=== PATIENT | male | born 1965 | race Caucasian/White ===

== ENCOUNTER → 2016-10-02 | Outpatient (CLI) | payer BC ==
--- NOTE | 2016-10-02 11:38 | NM ---
EXAMINATION TYPE: NM stress cardiolite complete DATE OF EXAM: 10/02/2016 10:11 AM COMPARISON: NONE HISTORY: R07.89, R06.02, shortness of breath TECHNIQUE: After the intravenous administration of 10.77 mCi Tc 99m Sestamibi - Rest images obtained 45 minutes post injection. The patient exercised using a ARABELLA protocol and 1 minute prior to peak exercise was injected with 27.5 mCi Tc 99m Sestamibi - Stress images obtained 10 minutes post inject ion. FINDINGS: Targeted heart rate was achieved during performance of the study. Review of stress and rest SPECT jeff ges demonstrates decreased radio pharmaceutical uptake at stress images along the inferior wall the l eft ventricular myocardium as compared to rest images, some decreased uptake also noted in the apical region on stress and rest images. Gated analysis shows normal wall motion with an estimated left ngozi tricular ejection fraction of 53%. IMPRESSION: Stress-induced left ventricular myocardial ischemia along the inferior wall of the left ventricular m yocardium, extension into the apex. A Yellow message has been communicated to Marleen Loaiza via the [employer] system on 10/02/2016 11:35 AM, Message ID [id number].
--- NOTE | 2016-10-02 12:37 | EST ---
DATE OF SERVICE: 10/02/2016 AGE: 51Y SEX: M HT: 70" WT: 273 lbs. Protocol Johnathan: X Other: Cardiolite Stress Stage: 3 Dur. of Exercise: 7:30 *Heart Rate Blood Pressure *Rest: 76 Rest: 130/83 * *Max. Achieved: 152 Maximum BP: 175/68 85% PMHR: 143 100% PMHR: 168 *METS: 8.0 INDICATIONS: Shortness of breath. MEDICATIONS: - CLINICAL INFORMATION: Shortness of breath, patient quit smoking 17 years ago, smoked for about 15 years, 1 pack of cigarettes a day. History of asthma. Resting ECG shows sinus rhythm, rate of 76 beats per minute, DE interval of 0.16, QRS 0.08, normal ST-T waves, poor R-wave progression in anteroseptal leads, possibly related to his chronic obstructive lung disease. Utilizing a standard Johnathan protocol, a symptom-limited treadmill test was performed. Patient exercised for total of 7 minutes and 30 seconds, attained a peak heart rate of 152 beats per minute, which is approximately 90% predicted maximum heart rate without any chest pain or pressure or ST segment deviations indicative of ischemia. Patient did complain of shortness of breath. No flat ST segment depression suggestive of angina is noted. No cardiac arrhythmias are noted. Patient has received Cardiolite scan, report will be followed by the radiologist. IMPRESSION: 1. Baseline rhythm is sinus with normal DE interval, normal QRS, normal ST-T waves, poor R-wave progression in anteroseptal leads. 2. Negative exercise treadmill test at 90% predicted maximal heart rate. 3. Nuclear scintigrams to follow from Radiology Department. 4. Patient has slightly below average level of cardiopulmonary fitness as indicated by O2 max and METs. 5. Patient attained peak metabolic activity equivalent to 8 to 9 METs.
--- NOTE | 2016-10-02 13:01 | XR ---
EXAMINATION TYPE: XR chest 2V DATE OF EXAM: 10/02/2016 10:13 AM COMPARISON: NONE HISTORY: Shortness of breath TECHNIQUE: Frontal and lateral views of the chest are obtained. FINDINGS: There is no focal air space opacity, pleural effusion, or pneumothorax seen. The cardiac silhouette size is within normal limits. The osseous structures are intact. IMPRESSION: No acute cardiopulmonary process.
== END | disposition home or self-care (01) ==
LOC: RADNMMAIN 07:56
PROVIDERS: ATTEND Nurse Practitioner Family
DX: I25.9 Chronic ischemic heart disease, unspecified (principal); R07.89 Other chest pain; R06.02 Shortness of breath
CPT/HCPCS: 93017; 71020; 78452; A9500

== ENCOUNTER → 2016-10-03 | Outpatient (CLI) | payer BC ==
[2016-10-03 09:20] LABS: CH 30.8; CHCM 33.3; HCT 46.1 % (39.0-53.0); HDW 2.48; HGB 14.5 gm/dL (13.0-17.5); MCH 29.3 pg (25.0-35.0); MCHC 31.6 g/dL (31.0-37.0); MCV 92.9 fL (80.0-100.0); Mean Platelet Volume 6.9; RBC 4.96 m/uL (4.30-5.90); RDW 12.8 % (11.5-15.5); WBC 8.4 k/uL (3.8-10.6)
[2016-10-03 10:11] LABS: ALT 73 U/L (21-72); AST 25 U/L (17-59); Anion Gap 13 mmol/L; Blood Urea Nitrogen 15 mg/dL (9-20); Carbon Dioxide 29 mmol/L (22-30); Chloride 103 mmol/L (98-107); Cholesterol 281 mg/dL (<200); HDL Cholesterol 50 mg/dL (40-60); Non-African American GFR(MDRD) >60 (>60 ml/min/1.73 sqM); Potassium 4.7 mmol/L (3.5-5.1); Sodium 145 mmol/L (137-145); Triglycerides 118 mg/dL (<150)
== END | disposition home or self-care (01) ==
LOC: LABWHC1 08:47
PROVIDERS: ATTEND Internal Medicine Cardiovascular Disease
DX: E78.2 Mixed hyperlipidemia (principal)
CPT/HCPCS: 36415; 80051; 80061; 82565; 84450; 84460; 84520; 85027

== ENCOUNTER → 2016-10-06 | Day surgery (SDC) | payer BC ==
[~2016-10-06] MED LIST: ALPRAZolam 0.25 MG TAB PO PRN; ALPRAZolam 0.5 MG TAB PO PRN; ASPIRIN 325 MG TAB PO STA; ATORVASTATIN 80 MG TAB PO STA; IOHEXOL 350 MG/ML 100 ML BOTTLE INJ ONE; LIDOCAINE 2% INJ 20 MG/ML (20 ML MDV) ONE; LIDOCAINE 2% INJ 20 MG/ML SQ ONE; MIDAZOLAM 2 MG/2 ML VIAL ONE; NITROGLYCERIN SL TABS 0.4 MG TAB SUBLINGUAL PRN; SODIUM CHLORIDE 0.9% 1,000 ML in EMPTY BAG 1 BAG IV ONE; diphenhydrAMINE 50 MG/ML 1 ML VIAL IVP ONE; diphenhydrAMINE 50 MG/ML 1 ML VIAL ONE; fentaNYL (PF) 50 MCG/ML 2 ML AMP IV ONE; fentaNYL (PF) 50 MCG/ML 2 ML AMP ONE
[2016-10-06 08:21] VITALS: RESP 18
[2016-10-06] MEDS: MIDAZOLAM 2 MG/2 ML VIAL IVP ONE ×3 (10:21→10:28)
--- NOTE | 2016-10-06 10:51 | P.OP ---
Date of Procedure: 10/06/16 Preoperative Diagnosis: Shortness of breath with abnormal stress test suggestive of unstable angina Postoperative Diagnosis: Normal coronary arteries Procedure(s) Performed: Left heart catheterization Operative Findings: Referring Physician: Hoda Indication: Shortness of breath with abnormal stress test suggestive of unstable angina Procedure Note: After obtaining informed consent left heart catheterization and coronary angiogram were performed via the right femoral artery using standard Debora catheters. Patient tolerated the procedure well without any obvious immediate complications. A femoral angiogram was obtained and Angio-Seal was deployed for hemostasis. Findings: Hemodynamics: Left ventricular end-diastolic pressure is 2014 mm Left Ventriculogram: Not performed Angiographic Data:] #1 Left Main Coronary Artery: Normal size vessel and is free of stenosis #2 Left Anterior Descending Coronary Artery: Normal vessel and diagonal branches are free of stenosis as is the LAD #3 Circumflex Coronary Artery: Large dominant vessel and is free of stenosis #4 Right Coronary Artery: Small nondominant vessel and is free of stenosis Conclusions: #1: Normal coronary arteries #2: Normal left ventricular end-diastolic pressure Plan: Shortness of breath is probably noncardiac in origin and the stress test is a false positive stress test
[2016-10-06 16:48] VITALS: TEMP 98
[2016-10-06 16:49] VITALS: BP 110/61; PULSE 70
== END ==
LOC: CATHCVL 07:53
PROVIDERS: ATTEND Internal Medicine Cardiovascular Disease
DX: R06.02 Shortness of breath (principal); R94.39 Abnormal result of other cardiovascular function study; I20.0 Unstable angina; E78.2 Mixed hyperlipidemia; Z79.82 Long term (current) use of aspirin; Z79.899 Other long term (current) drug therapy; Z82.49 Family history of ischemic heart disease and other diseases of the circulatory system; Z87.891 Personal history of nicotine dependence
CPT/HCPCS: 93458; C1760; C1894; C1769; J2001; J2250; J1200; Q9967; J3010

== ENCOUNTER → 2016-12-23 | Outpatient (CLI) | payer BC ==
[2016-12-23 13:59] VITALS: BP 143/82; PULSE 86; RESP 18; TEMP 97.5; BMI 41.5
--- NOTE | 2016-12-23 14:42 | P.HPBAR ---
Bariatric H&P - History & Physicial H&P Date: 12/23/16 History & Physicial: Visit/CC: 1st visit Patient initial contact: July 2016 Initial weight: 125.01 kg Initial weight in pounds: 275.60 Height: 5 ft 8.25 in Initial BMI: 41.5 Last weight: Current weight: 125.01 kg Current weight in pounds: 275.60 Current BMI: 41.5 Colby body weight (based on NIH guidelines): 70.534 kg Excess body weight loss: 0.0% The patient is a 51 year-old M who presents for Bariatric Assessment. Patient went to a bariatric seminar July. He is seen today for the first time to discuss bariatric surgery. He has had trouble with his weight for the majority of his life. He has however recently gained weight over the last 5 years approximately 40 pounds. His highest weight was 283. He is currently 275. He has tried a variety of different weight loss methods without success. His weight primarily affects him as it pertains to his arthritis and joint pain as well as his asthma. He is known to our service from a previous gallbladder 8- 10 years ago. The patient suffers from asthma rheumatoid arthritis osteoarthritis and GERD symptoms. He does denies dysphagia or DVT. He has not ever been on home oxygen. He may have had a hiatal hernia on prior upper endoscopy. He had a recent cardiac cath that was normal. He has not had a sleep apnea test study done. He is an ex smoker. He has been seen by Dr. Soto from cardiology and Dr. Armstrong from pulmonary. Review of Systems The patient denies any acute changes in his vision or hearing, no dysphagia or odynophagia, no chest pain, no dysuria or hematuria, no headache, no runny nose , no rectal bleeding or melena, no unexplained weight loss Past Medical History Past Medical History: Asthma, Coronary Artery Disease (CAD), Chest Pain / Angina , GERD/Reflux, Osteoarthritis (OA), Prostate Disorder Additional Past Medical History / Comment(s): CURRENT: HAD SOME CHEST PAIN, SOB , WENT TO DR. JUAREZ, STRESS & ECHO DONE. HAD INFECTION OF LEFT HIP POST OP WOUND (PICC LINE/ANTIBIOTICS) APPROXIMATELY 7 YRS AGO (2008-). History of Any Multi-Drug Resistant Organisms: None Reported Past Surgical History: Cholecystectomy, Orthopedic Surgery Additional Past Surgical History / Comment(s): TOTAL LEFT HIP REPLACMENT Past Anesthesia/Blood Transfusion Reactions: No Reported Reaction Past Psychological History: Anxiety Smoking Status: Former smoker Past Alcohol Use History: None Reported Additional Past Alcohol Use History / Comment(s): QUIT SMOKING 07/12/1999, FOR 15 YRS, 1.5 PPD. Past Drug Use History: None Reported - Past Family History Mother Family Medical History: No Reported History Surgical - Exam Vital Signs Temp Pulse Resp BP 97.5 F L 86 18 143/82 12/23/16 13:48 12/23/16 13:48 12/23/16 13:48 12/23/16 13:48 Physical exam: General: Well-developed, well-nourished HEENT: Normocephalic, sclerae nonicteric Abdomen: Nontender, nondistended Extremities: No edema Neuro: Alert and oriented Bariatric Assessment & Plan (1) Morbid obesity Narrative/Plan: Patient I discussed the options. We will move toward sleeve gastrectomy. The patient requires 6 months supervised weight loss program. Will plan EGD likely in February of this year. Patient will require stopping his meloxicam postoperatively. Associated risks of the sleeve gastrectomy were discussed in detail with the patient today. He understands and wishes to proceed. Status: Acute Bariatric Checklist Checklist: Plan: Checklist: EGD: 1. Hiatal hernia: 2. H. Pylori: HgbA1c: Vitamin D: Smoking: Former smoker Primary care physician referral: Tj Rice Psychiatry clearance: Cardiology clearance: Sleep study: Diet journal: VTE risk score: VTE risk level: Rehab needs at discharge:
== END | disposition home or self-care (01) ==
LOC: BARWHC3 13:38
PROVIDERS: ATTEND Surgery
DX: Z01.818 Encounter for other preprocedural examination (principal); E66.01 Morbid (severe) obesity due to excess calories; Z68.41 Body mass index [BMI] 40.0-44.9, adult; Z87.891 Personal history of nicotine dependence
CPT/HCPCS: 99201

== ENCOUNTER 2017-03-06 10:22 | Day surgery (SDC) | payer BC ==
[2017-03-04 09:43] VITALS: BMI 40.1
[~2017-03-06 10:22] MED LIST changes: -ALPRAZolam 0.25 MG TAB PO PRN; -ALPRAZolam 0.5 MG TAB PO PRN; -ASPIRIN 325 MG TAB PO STA; -ATORVASTATIN 80 MG TAB PO STA; -IOHEXOL 350 MG/ML 100 ML BOTTLE INJ ONE; +LACTATED RINGERS 1,000 ML IV SCH; +LIDOCAINE 1% 20 ML VIAL (10MG/ML) FOR IV START INTRADERMA PRN; -LIDOCAINE 2% INJ 20 MG/ML (20 ML MDV) ONE; -LIDOCAINE 2% INJ 20 MG/ML SQ ONE; -MIDAZOLAM 2 MG/2 ML VIAL ONE; -NITROGLYCERIN SL TABS 0.4 MG TAB SUBLINGUAL PRN; -SODIUM CHLORIDE 0.9% 1,000 ML in EMPTY BAG 1 BAG IV ONE; -diphenhydrAMINE 50 MG/ML 1 ML VIAL IVP ONE; -diphenhydrAMINE 50 MG/ML 1 ML VIAL ONE; -fentaNYL (PF) 50 MCG/ML 2 ML AMP IV ONE; -fentaNYL (PF) 50 MCG/ML 2 ML AMP ONE
[2017-03-06 10:55] VITALS: TEMP 97.3
[2017-03-06] MEDS ORDERED: fentaNYL (PF) 50 MCG/ML 2 ML AMP ONE (11:00)
[2017-03-06] MEDS ORDERED: PROPOFOL 10 MG/ML 20 ML VIAL IV ONE (11:00)
[2017-03-06] MEDS ORDERED: MIDAZOLAM 2 MG/2 ML VIAL ONE (11:00)
[2017-03-06] MEDS ORDERED: GLYCOPYRROLATE 0.2 MG/ML 2 ML VIAL ONE (11:00)
[2017-03-06] MEDS ORDERED: LIDOCAINE 1% INJ 10MG/ML (20 ML MDV) ONE (11:00)
--- NOTE | 2017-03-06 11:05 | P.GSHP ---
History of Present Illness H&P Date: 03/06/17 Chief Complaint: gerd Patient here today for upper endoscopy. He complains of intermittent reflux. He is being set up for eventual bariatric surgery in the near future. No dysphagia. Past Medical History Past Medical History: Asthma, Chest Pain / Angina, GERD/Reflux, Osteoarthritis ( OA), Prostate Disorder Additional Past Medical History / Comment(s): BPH. HAD INFECTION OF LEFT HIP POST OP WOUND (PICC LINE/ANTIBIOTICS) APPROXIMATELY 7 YRS AGO (2008-). History of Any Multi-Drug Resistant Organisms: None Reported Past Surgical History: Cholecystectomy, Heart Catheterization, Orthopedic Surgery Additional Past Surgical History / Comment(s): TOTAL LEFT HIP REPLACMENT. EGD, COLONOSCOPY. C. CATH 10/06/16, NL. Past Anesthesia/Blood Transfusion Reactions: Family History of Problems w/ Anesthesia Additional Past Anesthesia/Blood Transfusion Reaction / Comment(s): FATHER HAD PROB X1. Past Psychological History: Anxiety Additional Psychological History / Comment(s): "HX MINIMINAL" Smoking Status: Former smoker Past Alcohol Use History: None Reported Additional Past Alcohol Use History / Comment(s): QUIT SMOKING 07/12/1999, FOR 15 YRS, 1.5 PPD. Past Drug Use History: None Reported - Past Family History Mother Family Medical History: No Reported History Medications and Allergies Home Medications Medication Instructions Recorded Confirmed Type Albuterol Sulfate [Albuterol 1 dose INHALATION QID PRN 10/03/16 03/06/17 History Sulfate] Aspirin [Adult Low Dose Aspirin EC] 81 mg PO QAM 10/03/16 03/06/17 History Allergies Allergy/AdvReac Type Severity Reaction Status Date / Time No Known Allergies Allergy Unverified 03/06/17 10:44 Surgical - Exam Vital Signs Temp Pulse Resp BP Pulse Ox 97.3 F L 75 16 138/75 98 03/06/17 10:54 03/06/17 10:54 03/06/17 10:54 03/06/17 10:54 03/06/17 10:54 Physical exam: General: Well-developed, well-nourished HEENT: Normocephalic, sclerae nonicteric Abdomen: Nontender, nondistended Extremities: No edema Neuro: Alert and oriented Assessment and Plan (1) GERD (gastroesophageal reflux disease) Narrative/Plan: Will proceed with upper endoscopy at this time. Status: Acute
--- NOTE | 2017-03-06 11:13 | P.PCN ---
Date of Procedure: 03/06/17 Preoperative Diagnosis: Postoperative Diagnosis: Procedure(s) Performed: PREOPERATIVE DIAGNOSIS: Left inguinal hernia POSTOPERATIVE DIAGNOSIS: Same PROCEDURE: Repair left inguinal hernia with Prolene hernia system SURGEON: Shahid EBL: Minimal ANESTHESIA: General COMPLICATIONS: None OPERATIVE PROCEDURE: The patient is brought and placed on the operating table in the supine position. The patient was placed under general anesthesia at that time. The patient's previous incision was re-incised using a scalpel. The subcutaneous tissues were dissected using electro cautery. The external oblique was incised with a scalpel. This was lengthened using a Metzenbaum scissors. The spermatic cord structures were encircled with a Michael drain and dissected carefully. The patient had a moderate to large direct hernia defect. There was no identifiable indirect hernia sac. A portion of the attenuated transversalis fascia was excised and labeled hernia sac. The preperitoneal space was carefully dissected. A large Prolene hernia system was chosen. The inner circular portion of the mesh was placed within the pre- peroneal space and flattened out appropriately. The outer oval portion of mesh was slit and wrapped around the spermatic cord and sutured back to itself. The mesh was then sutured to the pubic tubercle, the folding edge of the inguinal ligament, and the conjoined tendon. The external oblique was then reapproximated using a running 2-0 Vicryl suture. The subcutaneous tissues were reapproximated using interrupted 3-0 Vicryl sutures and the skin using a running 4-0 Monocryl stitch. Steri-Strips and sterile dressings then applied. At the end of the procedure the sponge needle and counts were all correct. DISPOSITION: Stable to recovery room Implants: Indications for Procedure: Operative Findings: Description of Procedure:
--- NOTE | 2017-03-06 11:15 | P.PCN ---
Date of Procedure: 03/06/17 Preoperative Diagnosis: Postoperative Diagnosis: Procedure(s) Performed: Preoperative Dx: GERD, presurgical Postoperative Dx: Mild gastritis Procedure: EGD with Bx Anesthesia: Sedation Endoscopist: Dr. Key Specimens: Antrum Endoscopic Procedure: The patient was on the endoscopy table in the left decubitus position. The Olympus gastroscope was inserted into the oropharynx and passed under direct visualization to the region of the third portion of the duodenum. From that point the scope was slowly withdrawn inspecting all surfaces carefully. There were no neoplastic inflammatory or polypoid lesions throughout the duodenum. The pylorus was widely patent. The stomach was carefully inspected. There mild gastritis present. A biopsy of the antrum took place to rule out H. pylori. Retroflexion revealed a normal hiatus. The esophagus was then carefully examined. There were no neoplastic inflammatory or polypoid lesions throughout the visualized esophagus. The patient was then taken to the recovery room in stable condition per anesthesia guidelines. Recommendations: Await biopsy results. Implants: Indications for Procedure: Operative Findings: Description of Procedure:
[2017-03-06 11:22] VITALS: RESP 18
[2017-03-06 11:41] VITALS: BP 122/81; PULSE 73
== END 2017-03-06 12:06 | disposition home or self-care (01) ==
LOC: ORWHC2ENDO 10:22
PROVIDERS: ATTEND Surgery
DX: K29.50 Unspecified chronic gastritis without bleeding (principal); K21.9 Gastro-esophageal reflux disease without esophagitis; J45.909 Unspecified asthma, uncomplicated; M19.90 Unspecified osteoarthritis, unspecified site; N40.0 Benign prostatic hyperplasia without lower urinary tract symptoms; F41.9 Anxiety disorder, unspecified; Z79.82 Long term (current) use of aspirin; Z87.891 Personal history of nicotine dependence
CPT/HCPCS: 88305; 88342; 43239; J2250; J2001; J3010; J2704

== ENCOUNTER → 2017-07-08 | Outpatient (CLI) | payer BC ==
--- NOTE | 2017-07-08 15:46 | XR ---
Lumbar spine HISTORY: Chronic low back pain 3 views of the lumbar spine No comparisons There is a mild levoscoliosis centered at L3. Multilevel spondylosis is present. Loss of disc height present L3-4, L4-5 with associated vacuum phenomenon, loss of disc height also present L2-3, L5-S1. S clerosis present in the posterior elements of the lumbar spine. Lumbar vertebral bodies show preserve d height, alignment, and bone mineralization. Postop change noted status post hip arthroplasty. Vascu lar calcifications noted. IMPRESSION: Degenerative disc disease and facet arthropathy.
== END | disposition home or self-care (01) ==
LOC: RADXRMAIN 12:19
PROVIDERS: ATTEND Family Medicine
DX: M51.16 Intervertebral disc disorders with radiculopathy, lumbar region (principal); M46.96 Unspecified inflammatory spondylopathy, lumbar region
CPT/HCPCS: 72100

== ENCOUNTER → 2017-07-15 | Outpatient (CLI) | payer BC | END | disposition home or self-care (01) | LOC: RADMRIMAIN 18:28 | PROVIDERS: ATTEND Family Medicine | DX: Z53.9 Procedure and treatment not carried out, unspecified reason (principal) ==

== ENCOUNTER → 2017-10-06 | Outpatient (CLI) | payer BC ==
[2017-10-06 15:20] VITALS: BP 129/72; PULSE 78; RESP 20; TEMP 97.8; BMI 42.3
--- NOTE | 2017-10-06 17:13 | P.BASOAP ---
Subjective Progress Note Date: 10/06/17 Principal diagnosis: Morbid obesity Patient returns after completing 6 months of his supervised weight loss. Upper endoscopy performed in February showed no evidence of gastric ulcer, hiatal hernia, or H. pylori. He has completed his psychiatric evaluation. He would like to have surgery scheduled. Objective - Vital Signs Vital signs: Vital Signs Temp 97.8 F 10/06/17 15:17 Pulse 78 10/06/17 15:17 Resp 20 10/06/17 15:17 BP 129/72 10/06/17 15:17 Pulse Ox Intake & Output 10/05/17 10/06/17 10/06/17 18:59 06:59 18:59 Weight 127.278 kg - Exam Abdomen: Soft, nontender, nondistended Assessment/Plan (1) Morbid obesity Narrative/Plan: We'll proceed with scheduling of his upcoming sleeve gastrectomy. We'll clarify whether a seventh month of supervised weight loss is required. The risk profile form was reviewed in detail with the patient and all questions were appropriately answered. Plan: Date: 10/06/17 Initial Weight: 125.01 kg Initial BMI: 41.5 Current Weight: 127.278 kg Current BMI: 42.3 Type of Surgery: Vertical Sleeve Gastrectomy Total Volume in Band: Previous Volume: Volume Removed: Volume Added: Band Size:
== END | disposition home or self-care (01) ==
LOC: BARWHC3 14:40
PROVIDERS: ATTEND Surgery
DX: E66.01 Morbid (severe) obesity due to excess calories (principal); Z68.41 Body mass index [BMI] 40.0-44.9, adult
CPT/HCPCS: 99211

== ENCOUNTER → 2017-11-25 | Outpatient (CLI) | payer BC ==
[2017-11-25 12:54] LABS: Basophils # (A) 0.1 k/uL (0-0.2); Basophils % (A) 1 %; Eosinophils # (A) 0.2 k/uL (0-0.7); Eosinophils % (A) 2 %; HCT 43.8 % (39.0-53.0); HGB 14.4 gm/dL (13.0-17.5); Lymphocytes # (A) 2.1 k/uL (1.0-4.8); Lymphocytes % (A) 24 %; MCH 29.5 pg (25.0-35.0); MCV 89.6 fL (80.0-100.0); Mean Platelet Volume 6.4; Monocytes # (A) 0.6 k/uL (0-1.0); Monocytes % (A) 7 %; Neutrophils # (A) 5.7 k/uL (1.3-7.7); Neutrophils % (A) 65 %; Platelet Count 353 k/uL (150-450); RBC 4.89 m/uL (4.30-5.90); RDW 12.5 % (11.5-15.5); WBC 8.8 k/uL (3.8-10.6)
[2017-11-25 13:13] LABS: ALT 42 U/L (21-72); AST 21 U/L (17-59); Albumin 4.2 g/dL (3.5-5.0); Alkaline Phosphatase 82 U/L (38-126); Anion Gap 10 mmol/L; Blood Urea Nitrogen 16 mg/dL (9-20); Calcium 9.5 mg/dL (8.4-10.2); Carbon Dioxide 30 mmol/L (22-30); Chloride 102 mmol/L (98-107); Glucose 76 mg/dL (74-99); Potassium 4.4 mmol/L (3.5-5.1); Sodium 142 mmol/L (137-145); Total Bilirubin 0.3 mg/dL (0.2-1.3); Total Protein 7.1 g/dL (6.3-8.2)
== END | disposition home or self-care (01) ==
LOC: LABWHC1 12:15
PROVIDERS: ATTEND Surgery
DX: Z01.818 Encounter for other preprocedural examination (principal)
CPT/HCPCS: 36415; 80053; 85025; 93005

== ENCOUNTER 2017-12-13 16:16 | Inpatient (IN) | payer BC ==
[2017-12-13] MEDS ORDERED: SODIUM CHLORIDE 0.9% 1,000 ML IV STA (17:31)
--- NOTE | 2017-12-13 17:49 | ED ---
General Adult HPI - General Source: patient, RN notes reviewed Mode of arrival: ambulatory Limitations: no limitations <Anthony Adams - Last Filed: 12/13/17 19:59> <Alexander Duvall - Last Filed: 12/13/17 20:05> - General Chief complaint: Wound/Laceration Stated complaint: Hip Infection Time Seen by Provider: 12/13/17 17:13 - History of Present Illness Initial comments: Patient is 52-year-old male presenting today to the emergency room with a chief complaint of cellulitis to left hip area. He does admit that he had a hip replacement performed 4 years ago. States that his had 3 separate occasions a cellulitis to the left hip area. Patient admits that he began feeling some pain yesterday. He states some generalized body aches. Patient admits that he saw some redness and swelling locally to the left hip area. He states his symptoms are consistent with either states had in the past. Does admit that he' s had be admitted for IV antibiotics. States he sustained Dr. Henson in the past. Patient denies any recent fever, chills, shortness of breath, chest pain, back pain, abdominal pain, nausea or vomiting, numbness or tingling, headaches or visual changes, or any other complaints. (Anthony Adams) - Related Data Home Medications Medication Instructions Recorded Confirmed Tamsulosin HCl [Flomax] 0.4 mg PO DAILY 09/14/17 12/13/17 Acetaminophen Tab [Tylenol Tab] 500 mg PO Q6H PRN 12/10/17 12/13/17 Allergies Allergy/AdvReac Type Severity Reaction Status Date / Time No Known Allergies Allergy Verified 12/13/17 17:19 Review of Systems ROS Other: All systems not noted in ROS Statement are negative. <Anthony Adams - Last Filed: 12/13/17 19:59> ROS Other: All systems not noted in ROS Statement are negative. <Alexander Duvall - Last Filed: 12/13/17 20:05> ROS Statement: Those systems with pertinent positive or pertinent negative responses have been documented in the HPI. Past Medical History Past Medical History: Asthma, Chest Pain / Angina, GERD/Reflux, Osteoarthritis ( OA), Prostate Disorder Additional Past Medical History / Comment(s): BPH. HAD INFECTION OF LEFT HIP POST OP WOUND (PICC LINE/ANTIBIOTICS) APPROXIMATELY 7 YRS AGO (2008-). History of Any Multi-Drug Resistant Organisms: None Reported Past Surgical History: Cholecystectomy, Heart Catheterization, Orthopedic Surgery Additional Past Surgical History / Comment(s): TOTAL LEFT HIP REPLACMENT. EGD, COLONOSCOPY. C. CATH 10/06/16, NL. Past Anesthesia/Blood Transfusion Reactions: Family History of Problems w/ Anesthesia Additional Past Anesthesia/Blood Transfusion Reaction / Comment(s): FATHER HAD PROB X1. Past Psychological History: Anxiety Smoking Status: Former smoker Past Alcohol Use History: None Reported Past Drug Use History: None Reported - Past Family History Mother Family Medical History: No Reported History <Anthony Adams - Last Filed: 12/13/17 19:59> General Exam Limitations: no limitations <Anthony Adams - Last Filed: 12/13/17 19:59> <Alexander Duvall - Last Filed: 12/13/17 20:05> - General Exam Comments Initial Comments: General: The patient is awake and alert, in no distress, and does not appear acutely ill. Eye: Pupils are equal, round and reactive to light, extra-ocular movements are intact. No nystagmus. There is normal conjunctiva bilaterally. No signs of icterus. Ears, nose, mouth and throat: There are moist mucous membranes and no oral lesions. Neck: The neck is supple, there is no tenderness or JVD. Cardiovascular: There is a regular rate and rhythm. No murmur, rub or gallop is appreciated. Respiratory: Lungs are clear to auscultation, respirations are non-labored, breath sounds are equal. No wheezes, stridor, rales, or rhonchi. Musculoskeletal: Normal ROM, no tenderness. Strength 5/5. Sensation intact. Pulses equal bilaterally 2+. Neurological: A&O x 3. CN II-XII intact, There are no obvious motor or sensory deficits. Coordination appears grossly intact. Speech is normal. Skin: Patient does have area of redness swelling locally to the posterior aspect of the left hip towards the buttocks. Measures approximately 7 cm x 3 cm. Area is red raised. Mild warmth on palpation. Psychiatric: Cooperative, appropriate mood & affect, normal judgment. (Anthony Adams) Course <Anthony Adams - Last Filed: 12/13/17 19:59> <Alexander Duvall - Last Filed: 12/13/17 20:05> Vital Signs 12/13/17 12/13/17 12/13/17 16:43 19:19 19:49 Temperature 99.2 F 100.4 F H 99.6 F Pulse Rate 83 82 Respiratory 118 H 16 Rate Blood Pressure 124/76 142/65 O2 Sat by Pulse 96 97 Oximetry - Reevaluation(s) Reevaluation #1: 12/13/17 20:03 PA supervision: I did personally do a [id number] evaluation the patient did discuss the findings the patient and his . He does have erythema consistent with a cellulitis it seems be expanding. This is consistent with previous episodes. I did discuss the case him his and Dr. Rice. Patient will be admitted with consultation by Dr. Henson. (Alexander Duvall) Medical Decision Making - Lab Data Result diagrams: 12/13/17 17:55 12/13/17 17:55 <Anthony Adams - Last Filed: 12/13/17 19:59> - Lab Data Result diagrams: 12/13/17 17:55 12/13/17 17:55 <Alexander Duvall - Last Filed: 12/13/17 20:05> - Medical Decision Making Patient's labs been reviewed. Patient does admit that his had similar symptoms in the past with cellulitis. Area of redness has spread since this morning. He does admit that his need to be admitted. Patient will be started on vancomycin here in the emergency room. Patient to the hospital with consult to Dr. Henson. (Anthony Adams) - Lab Data Lab Results 12/13/17 12/13/17 12/13/17 Range/Units 17:55 17:55 17:55 WBC 9.1 (3.8-10.6) k/uL RBC 5.00 (4.30-5.90) m/uL Hgb 14.6 (13.0-17.5) gm/dL Hct 44.0 (39.0-53.0) % MCV 88.0 (80.0-100.0) fL MCH 29.1 (25.0-35.0) pg MCHC 33.1 (31.0-37.0) g/dL RDW 12.7 (11.5-15.5) % Plt Count 305 (150-450) k/uL Neutrophils % 66 % Lymphocytes % 20 % Monocytes % 8 % Eosinophils % 3 % Basophils % 1 % Neutrophils # 6.0 (1.3-7.7) k/uL Lymphocytes # 1.8 (1.0-4.8) k/uL Monocytes # 0.7 (0-1.0) k/uL Eosinophils # 0.3 (0-0.7) k/uL Basophils # 0.1 (0-0.2) k/uL Sodium 140 (137-145) mmol/L Potassium 4.6 (3.5-5.1) mmol/L Chloride 101 (98-107) mmol/L Carbon Dioxide 29 (22-30) mmol/L Anion Gap 10 mmol/L BUN 14 (9-20) mg/dL Creatinine 0.80 (0.66-1.25) mg/dL Est GFR (CKD-EPI)AfAm >90 (>60 ml/min/1.73 sqM) Est GFR (CKD-EPI)NonAf >90 (>60 ml/min/1.73 sqM) Glucose 79 (74-99) mg/dL Plasma Lactic Acid Sami 0.7 (0.7-2.0) mmol/L Calcium 9.8 (8.4-10.2) mg/dL Total Bilirubin 0.4 (0.2-1.3) mg/dL AST 23 (17-59) U/L ALT 34 (21-72) U/L Alkaline Phosphatase 71 (38-126) U/L Total Protein 7.4 (6.3-8.2) g/dL Albumin 4.3 (3.5-5.0) g/dL Disposition Time of Disposition: 19:02 <Anthony Adams - Last Filed: 12/13/17 19:59> <Alexander Duvall - Last Filed: 12/13/17 20:05> Clinical Impression: Cellulitis Disposition: ADMITTED IP TO THIS HOSP Condition: Stable Referrals: Tj Rice Jr, [Primary Care Provider] - 1-2 days
[2017-12-13 18:14] LABS: Basophils # (A) 0.1 k/uL (0-0.2); Basophils % (A) 1 %; Eosinophils # (A) 0.3 k/uL (0-0.7); Eosinophils % (A) 3 %; HGB 14.6 gm/dL (13.0-17.5); Lymphocytes # (A) 1.8 k/uL (1.0-4.8); Lymphocytes % (A) 20 %; MCH 29.1 pg (25.0-35.0); MCHC 33.1 g/dL (31.0-37.0); Mean Platelet Volume 6.5; Monocytes # (A) 0.7 k/uL (0-1.0); Monocytes % (A) 8 %; Neutrophils % (A) 66 %; Platelet Count 305 k/uL (150-450); RDW 12.7 % (11.5-15.5); WBC 9.1 k/uL (3.8-10.6)
[2017-12-13 18:28] LABS: ALT 34 U/L (21-72); AST 23 U/L (17-59); Albumin 4.3 g/dL (3.5-5.0); Alkaline Phosphatase 71 U/L (38-126); Anion Gap 10 mmol/L; Blood Urea Nitrogen 14 mg/dL (9-20); Calcium 9.8 mg/dL (8.4-10.2); Carbon Dioxide 29 mmol/L (22-30); Chloride 101 mmol/L (98-107); Glucose 79 mg/dL (74-99); Potassium 4.6 mmol/L (3.5-5.1); Sodium 140 mmol/L (137-145); Total Bilirubin 0.4 mg/dL (0.2-1.3); Total Protein 7.4 g/dL (6.3-8.2)
[2017-12-13] MEDS ORDERED: VANCOMYCIN IV PER PHARMACY 1 EACH MISC MISCELLANE PRN (18:55)
[2017-12-13] MEDS ORDERED: VANCOMYCIN 1,000 MG in SODIUM CHLORIDE 0.9% 250 ML IVPB STA (18:55)
[2017-12-13] MEDS ORDERED: VANCOMYCIN 2,250 MG in SODIUM CHLORIDE 0.9% 500 ML IVPB STA (19:02)
[2017-12-13] MEDS ORDERED: MORPHINE SULFATE 4 MG/ML SYRINGE IV STA (19:18)
[2017-12-13] MEDS ORDERED: ACETAMINOPHEN TAB 325 MG TAB PO STA (19:18)
[2017-12-13] MEDS ORDERED: ONDANSETRON 4 MG/2 ML VIAL IVP PRN (20:01)
[2017-12-13] MEDS ORDERED: ACETAMINOPHEN TAB 325 MG TAB PO PRN (20:01)
[2017-12-13] MEDS ORDERED: NALOXONE 0.4 MG/ML 1 ML VIAL IV PRN (20:01)
[2017-12-13] MEDS ORDERED: SODIUM CHLORIDE 0.9% 1,000 ML IV ONE (20:01)
[2017-12-13] MEDS ORDERED: HYDROcodone/APAP 5-325MG 1 EACH TAB PO PRN (20:01)
[2017-12-13] MEDS ORDERED: IBUPROFEN 400 MG TAB PO PRN (20:01)
[2017-12-14] MEDS: MORPHINE SULFATE/PF 10MG/10ML VL IV PRN ×2 (04:39→10:12)
[2017-12-14] MEDS: VANCOMYCIN 2,250 MG in SODIUM CHLORIDE 0.9% 500 ML IVPB SCH ×2 (06:56→20:17)
[2017-12-14] MEDS: TAMSULOSIN 0.4 MG CAP.ER.24H PO SCH (08:56)
[2017-12-14 09:41] LABS: Basophils % (A) 1 %; Eosinophils # (A) 0.2 k/uL (0-0.7); Eosinophils % (A) 2 %; HCT 41.8 % (39.0-53.0); HGB 14.2 gm/dL (13.0-17.5); Lymphocytes % (A) 22 %; MCH 29.9 pg (25.0-35.0); MCV 88.1 fL (80.0-100.0); Mean Platelet Volume 6.3; Monocytes # (A) 0.7 k/uL (0-1.0); Monocytes % (A) 8 %; Neutrophils # (A) 5.8 k/uL (1.3-7.7); Neutrophils % (A) 64 %; Platelet Count 299 k/uL (150-450); RBC 4.74 m/uL (4.30-5.90); RDW 12.5 % (11.5-15.5); WBC 9.1 k/uL (3.8-10.6)
[2017-12-14 10:56] LABS: ALT 41 U/L (21-72); AST 25 U/L (17-59); Albumin 3.8 g/dL (3.5-5.0); Alkaline Phosphatase 74 U/L (38-126); Anion Gap 10 mmol/L; Blood Urea Nitrogen 10 mg/dL (9-20); Carbon Dioxide 27 mmol/L (22-30); Chloride 102 mmol/L (98-107); Glucose 87 mg/dL (74-99); Potassium 4.3 mmol/L (3.5-5.1); Sodium 139 mmol/L (137-145); Total Bilirubin 0.4 mg/dL (0.2-1.3); Total Protein 6.6 g/dL (6.3-8.2)
[2017-12-14] MEDS: ALPRAZolam 0.25 MG TAB PO PRN ×2 (11:20→20:50)
--- NOTE | 2017-12-14 12:03 | P.HPIM ---
History of Present Illness H&P Date: 12/14/17 Chief Complaint: Erythema of left hip 52-year-old male who presented to the emergency room with a chief complaint of erythema to the left hip. The patient states he has a history of a left total hip replacement and has experienced cellulitis of the left hip 3 times since his surgery. The patient states he was experiencing some generalized body aches and noticed some erythema and edema of his left hip. He states that the erythema began to get larger and it appeared similar to his previous episodes of cellulitis. At that time the patient presented to the emergency room for further evaluation. The patient is tearful this morning and voices concerns of anxiety. He states he was scheduled for bariatric surgery this Thursday with Dr. Alcantar and is upset because he is anticipating his surgery will be canceled and delayed. The patient has a history of asthma, gastroesophageal reflux disease, osteoarthritis, BPH. He underwent a left total hip arthroplasty approximately 4 years ago. He has experienced 3 episodes of cellulitis of the left hip since his surgery. He also has a history of anxiety. He is a former cigarette smoker and quit smoking in 1998 after smoking 1.5 packs a day for 15 years. Laboratory data: WBC 9.1. Hemoglobin 14.6. Blood count 305. Sodium 140. Potassium 4.6. BUN 14. Creatinine 0.80. Glucose 79. Lactic acid 0.7. The patient was admitted to the hospital under the care of Dr. Sadler. Consultations were placed to infectious disease. Review of Systems GENERAL: Patient denies fever. Denies chills. EYES: Denies blurred vision. Denies vision changes. Denies eye pain. EARS, NOSE, MOUTH, & THROAT: Denies headache. Denies sore throat. Denies ear pain. RESPIRATORY: Denies cough. Denies shortness of breath. Denies sputum production. Denies hemoptysis. CARDIOVASCULAR: Denies chest pain or pressure. Denies palpitations. Denies arrhythmias. GASTROINTESTINAL: Denies abdominal pain. Denies diarrhea. Denies constipation. Denies nausea. Denies vomiting. Denies heartburn. Denies blood in the stool. GENITOURINARY: Denies urinary frequency. Denies burning. Denies dysuria. Denies cloudy urine. Denies blood in the urine. MUSCULOSKELETAL: Denies myalgias. Denies joint swelling. Denies decreased range of motion beyond patients baseline. INTEGUMENTARY: Positive for redness and edema of left hip. Positive for rabies episodes of cellulitis 3. PSYCHIATRIC: Positive for anxiety. Denies suicidal or homicial ideations. ENDOCRINE: Denies weight change. Denies polydipsia. Denies polyuria. HEMATOLOGIC: Denies bleeding disorders. Past Medical History Past Medical History: Asthma, Chest Pain / Angina, GERD/Reflux, Osteoarthritis ( OA), Prostate Disorder Additional Past Medical History / Comment(s): BPH. HAD INFECTION OF LEFT HIP POST OP WOUND (PICC LINE/ANTIBIOTICS) APPROXIMATELY 7 YRS AGO (2009-06). History of Any Multi-Drug Resistant Organisms: None Reported Past Surgical History: Cholecystectomy, Heart Catheterization, Orthopedic Surgery Additional Past Surgical History / Comment(s): TOTAL LEFT HIP REPLACMENT. EGD, COLONOSCOPY. C. CATH 10/06/16, [place]. Past Anesthesia/Blood Transfusion Reactions: Family History of Problems w/ Anesthesia Additional Past Anesthesia/Blood Transfusion Reaction / Comment(s): FATHER HAD PROB X1; "stopped breathing" Past Psychological History: Anxiety Additional Psychological History / Comment(s): "HX MINIMAL" Smoking Status: Former smoker Past Alcohol Use History: None Reported Additional Past Alcohol Use History / Comment(s): QUIT SMOKING 07/12/1999, FOR 15 YRS, 1.5 PPD. Past Drug Use History: None Reported - Past Family History Mother Family Medical History: No Reported History Medications and Allergies Home Medications Medication Instructions Recorded Confirmed Type Tamsulosin HCl [Flomax] 0.4 mg PO DAILY 09/14/17 12/13/17 History Acetaminophen Tab [Tylenol Tab] 500 mg PO Q6H PRN 12/10/17 12/13/17 History Allergies Allergy/AdvReac Type Severity Reaction Status Date / Time No Known Allergies Allergy Verified 12/13/17 17:19 Physical Exam Vitals: Vital Signs Temp Pulse Pulse Resp BP BP Pulse Ox 12/14/17 08:00 18 12/14/17 07:00 98.9 F 79 18 122/60 95 12/13/17 23:00 96.8 F L 84 16 118/64 94 L 12/13/17 20:39 98.3 F 85 16 131/62 97 12/13/17 19:49 99.6 F 82 16 142/65 97 12/13/17 19:19 100.4 F H 12/13/17 16:43 99.2 F 83 118 H 124/76 96 Intake and Output 12/13/17 12/14/17 12/14/17 22:59 06:59 14:59 Other: # Voids 1 # Bowel Movements 0 Weight 118.388 kg GENERAL: This is a 52-year-old male in no apparent distress at the time of examination. Tearful and anxious regarding hospitalization and possibility of cancellation of his bariatric surgery this Thursday. HEENT: Head is atraumatic, normocephalic. Pupils are equal, round, and reactive to light. Sclerae anicteric. Conjunctivae are clear. Mucus membranes of the mouth are moist. Neck is supple. RESPIRATORY: Clear to ausculation. No wheezes, rales, or rhonchi. No use of accessory muscles. Patient maintaining oxygen saturation greater than 92%. No chest wall tenderness is noted on palpation or with deep breathing. CARDIOVASCULAR: Regular rate and rhythm. S1 and S2 noted. No systolic or diastolic murmur auscultated. No JVD noted. No S3 or S4 noted. GASTROINTESTINAL: No distention noted. Abdomen soft and round. Normal active bowel sounds auscultated x 4 quadrants. No pain or tenderness noted upon palpation. INTEGUMENTARY: Erythema and swelling noted to the posterior aspect of the left hip. Erythema has improved from marking performed in the emergency room. No pain upon palpation. EXTREMITIES: 2+ peripheral pulses. No evidence of peripheral edema. No calf tenderness noted. NEUROLOGIC: Cranial nerves II-XII intact. PSYCHIATRIC: Awake, alert, and oriented X 3. Tearful and at bedtime regarding hospitalization. Appropriate affect. Intact judgement and insight. Results CBC & Chem 7: 12/14/17 08:46 12/14/17 08:46 Thrombosis Risk Factor Assmnt - Choose All That Apply Any of the Below Risk Factors Present?: Yes Each Factor Represents 1 point: Age 41-60 years, Obesity (BMI >25) Thrombosis Risk Factor Assessment Total Risk Factor Score: 2 Thrombosis Risk Factor Assessment Level: Low Risk Assessment and Plan Plan: ASSESSMENT: Cellulitis of left hip, present on admission, improving with IV antibiotics History of previous episodes of cellulitis of left hip 3 Osteoarthritis with previous left total hip replacement Generalized anxiety disorder Obesity: BMI 37.4, patient scheduled for bariatric surgery this Thursday History of nicotine dependence, in remission, patient quit smoking cigarettes in 1998 PLAN: Infectious disease on consult. Appreciate recommendations and input Antibiotic regimen per ID, currently on vancomycin Xanax 0.25 mg PRN q8 hours for anxiety Home meds as appropriate Monitor labs GI prophylaxis: Protonix 40 mg PO Daily DVT prophylaxis: Heparin 5000 units subcu every 12 hours Monitor vital signs and address as appropriate Discharge planning: Patient to return home when stable Further recommendations pending patient's course Nurse practitioner note has been reviewed by physician. Signing provider agrees with the documented findings, assessment, and plan of care.
[2017-12-14] MEDS ORDERED: SODIUM CHLORIDE 0.9% 1,000 ML IV SCH (12:15)
[2017-12-14 14:26] VITALS: BMI 37.4
[2017-12-14] MEDS: MORPHINE ORAL SOLN 10 MG/5 ML CUP PO PRN ×2 (15:05→20:50)
[2017-12-14] MEDS: HEPARIN SODIUM,PORCINE 5,000 UNIT/ML 1 ML VIAL SQ SCH (20:20)
--- NOTE | 2017-12-14 22:30 | P.CONS ---
History of Present Illness - Reason for Consult Consult date: 12/14/17 - Chief Complaint Fever - History of Present Illness Pleasant 52-year-old male who does have obesity has been in the midst of evaluation for gastric sleeve procedure. The patient relates to a known history of degenerative joint disease and had a left total hip arthroplasty done several years ago. In general the patient has been feeling modestly well except has been desiring the bariatric procedure for weight loss which then over the will benefit greatly is degenerative joint diseases of the hips as well as the spine. His back arthritis is the most limiting of all of his difficulties. Hopefully with weight loss he will regain health and improve his back. If weight loss does not resolve some of his difficulties in however would make him a much better surgical candidate for any type of lumbar procedure. The patient however developed significant fever and then swelling and discomfort to the left hip area as well as to the left groin. Because of this he presented to Hospital was found evidence of a cellulitis to his left hip. Antibiotic therapy was initiated. The patient does have a history of prior bouts of cellulitis of his left hip worries had a prior total hip arthroplasty in the past. He is not complaining of significant pain to the hip. In that with range of motion he is not having great discomfort. His greatest level of discomforts actually anteriorly toward the groin where there is some swelling and erythema also occurring. His fevers improving today. The patient relates that he has had some successful weight loss before the procedure and is anxious to improve his weight so that he can improve his quality of life. He is also somewhat concerned that many people in his family are diabetic, he has not yet but is afraid that he will become diabetic. Review of Systems HEENT:Denies headache or acute visual change. Denies sinus or mouth discomforts. Denies neck stiffness or pain. Denies significant oral cavity pain. Denies difficulty on swallowing. Lungs: Denies significant shortness of breath, cough, sputum production, or hemoptysis. Cardiovascular: Denies significant shortness of breath, chest pain, chest wall pain, orthopnea, dyspnea on exertion, syncope Gastrointestinal:Denies nausea, vomiting, diarrhea, constipation, hematemesis, melena, hematochezia. No no significant change of bowel habit noticed. Musculoskeletal: denies significant myalgias or arthralgias. No new joint swelling. Denies new back pain. Skin: As per the HPI significant pain and swelling erythema to the left hip area Neuro: Denies headache or visual change. Denies any new onset weakness or difficulty with ambulation. Denies falls or seizures. Psychiatric:Denies anxiety or depression. Endocrine: Has some mild fatigue has had some purposeful weight loss before his upcoming procedure. Past Medical History Past Medical History: Asthma, Chest Pain / Angina, GERD/Reflux, Osteoarthritis ( OA), Prostate Disorder Additional Past Medical History / Comment(s): BPH. HAD INFECTION OF LEFT HIP POST OP WOUND (PICC LINE/ANTIBIOTICS) APPROXIMATELY 7 YRS AGO (2009-06). History of Any Multi-Drug Resistant Organisms: None Reported Past Surgical History: Cholecystectomy, Heart Catheterization, Orthopedic Surgery Additional Past Surgical History / Comment(s): TOTAL LEFT HIP REPLACMENT. EGD, COLONOSCOPY. C. CATH 10/06/16, [place]. Past Anesthesia/Blood Transfusion Reactions: Family History of Problems w/ Anesthesia Additional Past Anesthesia/Blood Transfusion Reaction / Comm: FATHER HAD PROB X1 ; "stopped breathing" Past Psychological History: Anxiety Additional Psychological History / Comment(s): and lives in the family home with his and one daughter, other adult daughter lives locally. Works for the [employer]. Did have experience. No recent international travel. No animal exposures. Has not smoked since 1998. Denies significant alcohol or recreational drug use Smoking Status: Former smoker Past Alcohol Use History: None Reported Additional Past Alcohol Use History / Comment(s): QUIT SMOKING 07/12/1999, FOR 15 YRS, 1.5 PPD. Past Drug Use History: None Reported - Past Family History Mother Family Medical History: No Reported History Medications and Allergies Home Medications and Allergies Comment(s): Current Medications Acetaminophen (Tylenol Tab) 650 mg PO Q6HR PRN PRN Reason: Mild Pain or Fever > 100.5 Last Admin: 12/14/17 08:55 Dose: 650 mg Hydrocodone Bitart/Acetaminophen (Bourbon 5-325) 1 each PO Q4HR PRN PRN Reason: Moderate Pain Alprazolam (Xanax) 0.25 mg PO TID PRN PRN Reason: Anxiety Last Admin: 12/14/17 20:50 Dose: 0.25 mg Heparin Sodium (Porcine) (Heparin) 5,000 unit SQ Q12HR [facility] Last Admin: 12/14/17 20:20 Dose: Not Given Vancomycin HCl 2,250 mg/ (Sodium Chloride) 500 mls @ 167 mls/hr IVPB Q12H [facility] Last Admin: 12/14/17 20:17 Dose: 167 mls/hr Sodium Chloride (Saline 0.9%) 1,000 mls @ 75 mls/hr IV .[id number] [facility] Stop: 12/15/17 00:16 Last Admin: 12/14/17 13:24 Dose: 75 mls/hr Ibuprofen (Motrin) 400 mg PO Q6HR PRN PRN Reason: Mild Pain or Fever > 100.5 Iron/Minerals/Multivitamins (Theragran Liquid) 15 ml PO DAILY@1200 [facility] Morphine Sulfate (Morphine Oral Zita 2mg/Ml) 12 mg PO Q4HR PRN PRN Reason: Severe Pain Last Admin: 12/14/17 20:50 Dose: 12 mg Naloxone HCl (Narcan) 0.2 mg IV Q2M PRN PRN Reason: Opioid Reversal Ondansetron HCl (Zofran) 4 mg IVP Q8HR PRN PRN Reason: Nausea And Vomiting Pantoprazole Sodium (Protonix) [facility] Tamsulosin HCl (Flomax) 0.4 mg PO DAILY [facility] Last Admin: 12/14/17 08:56 Dose: 0.4 mg Home Medications Medication Instructions Recorded Confirmed Type Tamsulosin HCl [Flomax] 0.4 mg PO DAILY 09/14/1718 History Acetaminophen Tab [Tylenol Tab] 500 mg PO Q6H PRN 12/10/17 12/13/17 History Allergies Allergy/AdvReac Type Severity Reaction Status Date / Time No Known Allergies Allergy Verified 12/13/17 17:19 Physical Exam Vitals: Vital Signs Temp Pulse Resp BP Pulse Ox 12/14/17 15:00 97.0 F L 87 18 131/74 94 L 12/14/17 08:00 18 12/14/17 07:00 98.9 F 79 18 122/60 95 12/13/17 23:00 96.8 F L 84 16 118/64 94 L Intake and Output 12/14/17 12/14/17 12/14/17 06:59 14:59 22:59 Other: Voiding Method Toilet Urinal # Voids 1 3 # Bowel Movements 0 1 Weight 118.388 kg HEENT: Anicteric conjunctiva are pink and moist nasal mucosa grossly intact without significant lesions, there is no thrush. Neck: The neck is supple without significant lymphadenopathy or thyromegaly. Lungs: Good bilateral air entry without significant crackles or wheezing. There is no significant bronchial sounds. There is no egophony or dullness. Heart: Regular rate and rhythm with an audible S1-S2, no S3 no S4. There is no significant murmur click or rub, PMI was nondisplaced. Abdomen: obese, Positive bowel sounds soft and nontender without palpable masses or organomegaly. There was no guarding or rebound. Extremities: The upper extremities have excellent pulses they are symmetric, no significant petechiae or telangiectasia. No splinter hemorrhages were noted. The lower extremities are free from significant edema. The left hip area has evidence of some scattered erythema posterior to the prior surgical incision from the total hip arthroplasties is well-healed. There is also some erythema to the groin area with what appears to be minimally tender lymphadenopathy. Neuro: Awake alert oriented to person place and time. There are no acute new gross focal sensory motor deficits. Results CBC & Chem 7: 12/14/17 08:46 12/14/17 08:46 Labs: Microbiology - Last 24 Hours (Table) 12/13/17 17:55 Blood Culture - Preliminary Blood No Growth after 24 hours Laboratory Results WBC 9.1 k/uL (3.8-10.6) 12/14/17 08:46 RBC 4.74 m/uL (4.30-5.90) 12/14/17 08:46 Hgb 14.2 gm/dL (13.0-17.5) 12/14/17 08:46 Hct 41.8 % (39.0-53.0) 12/14/17 08:46 MCV 88.1 fL (80.0-100.0) 12/14/17 08:46 MCH 29.9 pg (25.0-35.0) 12/14/17 08:46 MCHC 34.0 g/dL (31.0-37.0) 12/14/17 08:46 RDW 12.5 % (11.5-15.5) 12/14/17 08:46 Plt Count 299 k/uL (150-450) 12/14/17 08:46 Neutrophils % 64 % 03/19/18 08:46 Lymphocytes % 22 % 12/14/17 08:46 Monocytes % 8 % 12/14/17 08:46 Eosinophils % 2 % 12/14/17 08:46 Basophils % 1 % 12/14/17 08:46 Neutrophils # 5.8 k/uL (1.3-7.7) 12/14/17 08:46 Lymphocytes # 2.0 k/uL (1.0-4.8) 12/14/17 08:46 Monocytes # 0.7 k/uL (0-1.0) 12/14/17 08:46 Eosinophils # 0.2 k/uL (0-0.7) 12/14/17 08:46 Basophils # 0.0 k/uL (0-0.2) 12/14/17 08:46 Sodium 139 mmol/L (137-145) 12/14/17 08:46 Potassium 4.3 mmol/L (3.5-5.1) 12/14/17 08:46 Chloride 102 mmol/L (98-107) 12/14/17 08:46 Carbon Dioxide 27 mmol/L (22-30) 12/14/17 08:46 Anion Gap 10 mmol/L 12/14/17 08:46 BUN 10 mg/dL (9-20) 12/14/17 08:46 Creatinine 0.76 mg/dL (0.66-1.25) 12/14/17 08:46 Est GFR (CKD-EPI)AfAm >90 (>60 ml/min/1.73 sqM) 12/14/17 08:46 Est GFR (CKD-EPI)NonAf >90 (>60 ml/min/1.73 sqM) 12/14/17 08:46 Glucose 87 mg/dL (74-99) 12/14/17 08:46 Plasma Lactic Acid Sami 0.7 mmol/L (0.7-2.0) 12/13/17 17:55 Calcium 9.0 mg/dL (8.4-10.2) 12/14/17 08:46 Total Bilirubin 0.4 mg/dL (0.2-1.3) 12/14/17 08:46 AST 25 U/L (17-59) 12/14/17 08:46 ALT 41 U/L (21-72) 12/14/17 08:46 Alkaline Phosphatase 74 U/L (38-126) 12/14/17 08:46 Total Protein 6.6 g/dL (6.3-8.2) 12/14/17 08:46 Albumin 3.8 g/dL (3.5-5.0) 12/14/17 08:46 Microbiology 12/13/17 17:55 Blood Blood Culture - Preliminary No Growth after 24 hours Assessment and Plan (1) Obesity (BMI 30-39.9) Current Visit: Yes Status: Acute Code(s): E66.9 - OBESITY, UNSPECIFIED SNOMED Code(s): 740686134 (2) Degenerative joint disease Current Visit: Yes Status: Acute Code(s): M19.90 - UNSPECIFIED OSTEOARTHRITIS, UNSPECIFIED SITE SNOMED Code(s): 571380594 (3) Degenerative joint disease (DJD) of lumbar spine Current Visit: Yes Status: Acute Code(s): M47.816 - SPONDYLOSIS W/O MYELOPATHY OR RADICULOPATHY, LUMBAR REGION SNOMED Code(s): 104684703 (4) Cellulitis of hip, left Narrative/Plan: Pleasant 52-year-old male presents to Hospital with concerns to his left hip with sudden onset of erythema discomfort in fever. The patient is quite anxious because he is due for a gastric sleeve procedure later this week. It has been orchestrated with his work for his time off and of course the surgical schedule. The patient has no specific trauma but has been on a very specific high-protein low carbohydrate diet in preparation for his surgery. He has had a difficulty with cellulitis to this hip in the past and require IV antibiotic therapy 7 years ago. At this time the patient has a somewhat limited cellulitis to the left hip is responding rapidly to antibiotic therapy with vancomycin. This will continue and the hip will be monitored. The patient appears to have no significant sepsis. Given the acute infection it is likely the surgeon will postpone his elective procedure later this week. Fortunately he has having a rapid improvement. Liquid multivitamin is requested. Current Visit: Yes Status: Acute Code(s): L03.116 - CELLULITIS OF LEFT LOWER LIMB SNOMED Code(s): 9554032
[2017-12-15] MEDS: HEPARIN SODIUM,PORCINE 5,000 UNIT/ML 1 ML VIAL SQ SCH ×2 (08:30→22:17)
[2017-12-15] MEDS: TAMSULOSIN 0.4 MG CAP.ER.24H PO SCH (08:31)
[2017-12-15] MEDS: PANTOPRAZOLE 40 MG TABLET PO SCH (08:31)
[2017-12-15] MEDS: VANCOMYCIN 2,250 MG in SODIUM CHLORIDE 0.9% 500 ML IVPB SCH ×2 (08:31→20:50)
--- NOTE | 2017-12-15 09:17 | P.PN ---
Subjective Progress Note Date: 12/15/17 52-year-old male who presented to the emergency room with a chief complaint of erythema to the left hip. The patient states he has a history of a left total hip replacement and has experienced cellulitis of the left hip 3 times since his surgery. The patient states he was experiencing some generalized body aches and noticed some erythema and edema of his left hip. He states that the erythema began to get larger and it appeared similar to his previous episodes of cellulitis. At that time the patient presented to the emergency room for further evaluation. The patient is tearful this morning and voices concerns of anxiety. He states he was scheduled for bariatric surgery this Thursday with Dr. Key and is upset because he is anticipating his surgery will be canceled and delayed. The patient has a history of asthma, gastroesophageal reflux disease, osteoarthritis, BPH. He underwent a left total hip arthroplasty approximately 4 years ago. He has experienced 3 episodes of cellulitis of the left hip since his surgery. He also has a history of anxiety. He is a former cigarette smoker and quit smoking in 1998 after smoking 1.5 packs a day for 15 years. Laboratory data: WBC 9.1. Hemoglobin 14.6. Blood count 305. Sodium 140. Potassium 4.6. BUN 14. Creatinine 0.80. Glucose 79. Lactic acid 0.7. The patient was admitted to the hospital under the care of Dr. Sadler. Consultations were placed to infectious disease. 12/15/2017 Patient seen and examined at the bedside on rounds with Dr. Sadler. Patients anxiety has improved significantly with the addition of Xanax. Erythema to left hip has improved significantly. Some erythema to left groin still remains. Patient remains on vancomycin. Infectious disease is on consult. Patient has multiple questions regarding his bariatric surgery that was supposed to be performed this Thursday by Dr. Key and he is requesting to speak with him. Patient states he has been up in the halls walking independently. Voiding without difficulty. Denies nausea or vomiting. Denies shortness of breath or chest pain. Vital signs have remained stable. Patient is afebrile. Objective - Vital Signs Vital signs: Vital Signs Temp 96.6 F L 12/15/17 07:00 Pulse 76 12/15/17 07:00 Resp 16 12/15/17 07:00 BP 133/75 12/15/17 07:00 Pulse Ox 93 L 12/15/17 07:00 Intake & Output 12/14/17 12/15/17 12/15/17 18:59 06:59 18:59 Intake Total 800 Balance 800 Weight 118.388 kg Intake: Oral 800 Other: Voiding Method Toilet Urinal # Voids 3 1 # Bowel Movements 1 - Exam GENERAL: This is a 52-year-old male in no apparent distress at the time of examination. HEENT: Head is atraumatic, normocephalic. Pupils are equal, round, and reactive to light. Sclerae anicteric. Conjunctivae are clear. Mucus membranes of the mouth are moist. Neck is supple. RESPIRATORY: Clear to ausculation. No wheezes, rales, or rhonchi. No use of accessory muscles. Patient maintaining oxygen saturation greater than 92%. No chest wall tenderness is noted on palpation or with deep breathing. CARDIOVASCULAR: Regular rate and rhythm. S1 and S2 noted. No systolic or diastolic murmur auscultated. No JVD noted. No S3 or S4 noted. GASTROINTESTINAL: No distention noted. Abdomen soft and round. Normal active bowel sounds auscultated x 4 quadrants. No pain or tenderness noted upon palpation. INTEGUMENTARY: Mild erythema and swelling noted to the posterior aspect of the left hip, significantly improved from yesterday. A small area of erythema remains to left groin. No pain upon palpation. EXTREMITIES: 2+ peripheral pulses. No evidence of peripheral edema. No calf tenderness noted. NEUROLOGIC: Cranial nerves II-XII intact. PSYCHIATRIC: Awake, alert, and oriented X 3. Appropriate affect. Intact judgement and insight. - Labs CBC & Chem 7: 12/14/17 08:46 12/14/17 08:46 Labs: Microbiology - Last 24 Hours (Table) 12/13/17 17:55 Blood Culture - Preliminary Blood No Growth after 24 hours Assessment and Plan Plan: ASSESSMENT: Cellulitis of left hip, present on admission, improving with IV antibiotics History of previous episodes of cellulitis of left hip 3 Osteoarthritis with previous left total hip replacement Generalized anxiety disorder Obesity: BMI 37.4, patient scheduled for bariatric surgery this Thursday History of nicotine dependence, in remission, patient quit smoking cigarettes in 1998 PLAN: Will consult Dr. Key as patient was scheduled for bariatric surgery on Thursday and has multiple questions about rescheduling his surgery Infectious disease on consult. Appreciate recommendations and input Antibiotic regimen per ID, currently on vancomycin Continue Xanax when necessary for anxiety Home meds as appropriate Monitor labs GI prophylaxis: Protonix 40 mg PO Daily DVT prophylaxis: Heparin 5000 units subcu every 12 hours Monitor vital signs and address as appropriate Discharge planning: Patient to return home when stable Further recommendations pending patient's course Possible discharge within the next 24-48 hours if patient remains stable Nurse practitioner note has been reviewed by physician. Signing provider agrees with the documented findings, assessment, and plan of care.
[2017-12-15] MEDS ORDERED: MULTIVITAMINS, THERA LIQUID 237 ML BOTTLE PO SCH (12:00)
[2017-12-15] MEDS: ALPRAZolam 0.25 MG TAB PO PRN (22:22)
--- NOTE | 2017-12-15 23:32 | P.PN ---
Subjective Progress Note Date: 12/15/17 Principal diagnosis: Cellulitis left hip Pleasant 52-year-old male who does have obesity has been in the midst of evaluation for gastric sleeve procedure. The patient relates to a known history of degenerative joint disease and had a left total hip arthroplasty done several years ago. In general the patient has been feeling modestly well except has been desiring the bariatric procedure for weight loss which then over the will benefit greatly is degenerative joint diseases of the hips as well as the spine. His back arthritis is the most limiting of all of his difficulties. Hopefully with weight loss he will regain health and improve his back. If weight loss does not resolve some of his difficulties in however would make him a much better surgical candidate for any type of lumbar procedure. The patient however developed significant fever and then swelling and discomfort to the left hip area as well as to the left groin. Because of this he presented to Hospital was found evidence of a cellulitis to his left hip. Antibiotic therapy was initiated. The patient does have a history of prior bouts of cellulitis of his left hip worries had a prior total hip arthroplasty in the past. He is not complaining of significant pain to the hip. In that with range of motion he is not having great discomfort. His greatest level of discomforts actually anteriorly toward the groin where there is some swelling and erythema also occurring. His fevers improving today. The patient relates that he has had some successful weight loss before the procedure and is anxious to improve his weight so that he can improve his quality of life. He is also somewhat concerned that many people in his family are diabetic, he has not yet but is afraid that he will become diabetic. 12/15/2017 reveals the patient to have significant improvement of his status. The pain and swelling improved significantly. His having no further fevers or chills. Not quite yet to baseline. Remains somewhat anxious about his upcoming surgery. Objective - Vital Signs Vital signs: Vital Signs Temp 97.0 F L 12/15/17 15:00 Pulse 83 12/15/17 15:00 Resp 16 12/15/17 15:10 BP 122/69 12/15/17 15:00 Pulse Ox 94 L 12/15/17 15:00 Intake & Output 12/15/17 12/15/17 12/16/17 06:59 18:59 06:59 Intake Total 800 Balance 800 Intake: Oral 800 Other: Voiding Method Toilet # Voids 1 3 - Exam HEENT: Anicteric conjunctiva are pink and moist nasal mucosa grossly intact without significant lesions, there is no thrush. Neck: The neck is supple without significant lymphadenopathy or thyromegaly. Lungs: Good bilateral air entry without significant crackles or wheezing. There is no significant bronchial sounds. There is no egophony or dullness. Heart: Regular rate and rhythm with an audible S1-S2, no S3 no S4. There is no significant murmur click or rub, PMI was nondisplaced. Abdomen: obese, Positive bowel sounds soft and nontender without palpable masses or organomegaly. There was no guarding or rebound. Extremities: The upper extremities have excellent pulses they are symmetric, no significant petechiae or telangiectasia. No splinter hemorrhages were noted. The lower extremities are free from significant edema. Left hip area has evidence of the improvement to the significant tender lymphadenopathy to the left inguinal area. The dense erythema to the left buttocks is significantly improved as has the dense erythema to the left inguinal area. Overall tenderness is much improved. Patient's range of motion is improving also. Neuro: Awake alert oriented to person place and time. There are no acute new gross focal sensory motor deficits. - Labs CBC & Chem 7: 12/14/17 08:46 12/14/17 08:46 Labs: Microbiology - Last 24 Hours (Table) 12/13/17 17:55 Blood Culture - Preliminary Blood No Growth after 48 hours Laboratory Results WBC 9.1 k/uL (3.8-10.6) 12/14/17 08:46 RBC 4.74 m/uL (4.30-5.90) 12/14/17 08:46 Hgb 14.2 gm/dL (13.0-17.5) 12/14/17 08:46 Hct 41.8 % (39.0-53.0) 12/14/17 08:46 MCV 88.1 fL (80.0-100.0) 12/14/17 08:46 MCH 29.9 pg (25.0-35.0) 12/14/17 08:46 MCHC 34.0 g/dL (31.0-37.0) 12/14/17 08:46 RDW 12.5 % (11.5-15.5) 12/14/17 08:46 Plt Count 299 k/uL (150-450) 12/14/17 08:46 Neutrophils % 64 % 12/14/17 08:46 Lymphocytes % 22 % 12/14/17 08:46 Monocytes % 8 % 12/14/17 08:46 Eosinophils % 2 % 12/14/17 08:46 Basophils % 1 % 12/14/17 08:46 Neutrophils # 5.8 k/uL (1.3-7.7) 12/14/17 08:46 Lymphocytes # 2.0 k/uL (1.0-4.8) 12/14/17 08:46 Monocytes # 0.7 k/uL (0-1.0) 12/14/17 08:46 Eosinophils # 0.2 k/uL (0-0.7) 12/14/17 08:46 Basophils # 0.0 k/uL (0-0.2) 12/14/17 08:46 Sodium 139 mmol/L (137-145) 12/14/17 08:46 Potassium 4.3 mmol/L (3.5-5.1) 12/14/17 08:46 Chloride 102 mmol/L (98-107) 12/14/17 08:46 Carbon Dioxide 27 mmol/L (22-30) 12/14/17 08:46 Anion Gap 10 mmol/L 12/14/17 08:46 BUN 10 mg/dL (9-20) 12/14/17 08:46 Creatinine 0.76 mg/dL (0.66-1.25) 12/14/17 08:46 Est GFR (CKD-EPI)AfAm >90 (>60 ml/min/1.73 sqM) 12/14/17 08:46 Est GFR (CKD-EPI)NonAf >90 (>60 ml/min/1.73 sqM) 12/14/17 08:46 Glucose 87 mg/dL (74-99) 12/14/17 08:46 Plasma Lactic Acid Sami 0.7 mmol/L (0.7-2.0) 12/13/17 17:55 Calcium 9.0 mg/dL (8.4-10.2) 12/14/17 08:46 Total Bilirubin 0.4 mg/dL (0.2-1.3) 12/14/17 08:46 AST 25 U/L (17-59) 12/14/17 08:46 ALT 41 U/L (21-72) 12/14/17 08:46 Alkaline Phosphatase 74 U/L (38-126) 12/14/17 08:46 Total Protein 6.6 g/dL (6.3-8.2) 12/14/17 08:46 Albumin 3.8 g/dL (3.5-5.0) 12/14/17 08:46 Microbiology 12/13/17 17:55 Blood Blood Culture - Preliminary No Growth after 48 hours Assessment and Plan (1) Obesity (BMI 30-39.9) Current Visit: Yes Status: Acute Code(s): E66.9 - OBESITY, UNSPECIFIED SNOMED Code(s): 245441412 (2) Degenerative joint disease Current Visit: Yes Status: Acute Code(s): M19.90 - UNSPECIFIED OSTEOARTHRITIS, UNSPECIFIED SITE SNOMED Code(s): 641072015 (3) Degenerative joint disease (DJD) of lumbar spine Current Visit: Yes Status: Acute Code(s): M47.816 - SPONDYLOSIS W/O MYELOPATHY OR RADICULOPATHY, LUMBAR REGION SNOMED Code(s): 741136262 (4) Cellulitis of hip, left Narrative/Plan: Pleasant 52-year-old male presents to Hospital with concerns to his left hip with sudden onset of erythema discomfort in fever. The patient is quite anxious because he is due for a gastric sleeve procedure later this week. It has been orchestrated with his work for his time off and of course the surgical schedule. The patient has no specific trauma but has been on a very specific high-protein low carbohydrate diet in preparation for his surgery. He has had a difficulty with cellulitis to this hip in the past and require IV antibiotic therapy 7 years ago. At this time the patient has a somewhat limited cellulitis to the left hip is responding rapidly to antibiotic therapy with vancomycin. This will continue and the hip will be monitored. The patient appears to have no significant sepsis. Given the acute infection it is likely the surgeon will postpone his elective procedure later this week. Fortunately he has having a rapid improvement. Liquid multivitamin is requested. 12/15/2017 reveals the patient to have some improvement. The case is discussed with the surgeon. He will relax his current caloric restrictions in attempts to try to improve his healing and response to the recent infection. Continue the multivitamin. Patient likely ready for discharge home tomorrow is on his cultures are negative. Oral trimethoprim sulfamethoxazole liquid be utilized to complete his course of therapy for the acute cellulitic process. The patient should not proceed with his elective surgery on Thursday. He should have complete resolution of the infectious process and hopefully one week after antibiotics are complete he would then be a candidate for surgical intervention. Current Visit: Yes Status: Acute Code(s): L03.116 - CELLULITIS OF LEFT LOWER LIMB SNOMED Code(s): 6962764
[2017-12-16] MEDS ORDERED: VANCOMYCIN TROUGH DUE 1 EACH MISC MISCELLANE ONE (06:00)
[2017-12-16] MEDS: VANCOMYCIN 2,250 MG in SODIUM CHLORIDE 0.9% 500 ML IVPB SCH (07:49)
[2017-12-16 08:08] VITALS: BP 125/69; PULSE 64; RESP 16; TEMP 96.6
[2017-12-16] MEDS: TAMSULOSIN 0.4 MG CAP.ER.24H PO SCH (09:43)
[2017-12-16] MEDS: PANTOPRAZOLE 40 MG TABLET PO SCH (09:44)
[2017-12-16] MEDS: HEPARIN SODIUM,PORCINE 5,000 UNIT/ML 1 ML VIAL SQ SCH (09:44)
--- NOTE | 2017-12-16 12:38 | P.DS ---
Providers Date of admission: 12/15/17 16:00 Expected date of discharge: 12/16/17 Attending physician: Tj Rice Consults: 12/13/17 20:01 Consult Physician Stat Consulting Provider: Orion Henson Reason/Comments: cellulitis Do you want consulting provider notified?: Yes Primary care physician: [facility] Course: 52-year-old male who presented to the emergency room with a chief complaint of erythema to the left hip. The patient states he has a history of a left total hip replacement and has experienced cellulitis of the left hip 3 times since his surgery. The patient states he was experiencing some generalized body aches and noticed some erythema and edema of his left hip. He states that the erythema began to get larger and it appeared similar to his previous episodes of cellulitis. At that time the patient presented to the emergency room for further evaluation. The patient has a history of asthma, gastroesophageal reflux disease, osteoarthritis, BPH. He underwent a left total hip arthroplasty approximately 4 years ago. He has experienced 3 episodes of cellulitis of the left hip since his surgery. He also has a history of anxiety. He is a former cigarette smoker and quit smoking in 1998 after smoking 1.5 packs a day for 15 years. Laboratory data: WBC 9.1. Hemoglobin 14.6. Blood count 305. Sodium 140. Potassium 4.6. BUN 14. Creatinine 0.80. Glucose 79. Lactic acid 0.7. The patient was admitted to the hospital under the care of Dr. Sadler. The patient was evaluated by Dr. Henson, infectious disease, during hospitalization. The patient received vancomycin IV during hospitalization. His cellulitis has improved significantly. Erythema and swelling to left hip has resolved. Patient only has a very minimal amount of erythema to the left groin. Patient states the pain and tenderness has completely resolved. Infectious disease recommends Bactrim at the time of discharge and Dr. Henson sent a prescription to the patient's pharmacy. The patient was originally scheduled for bariatric surgery with Dr. Key on 12/18/2017. Dr. Alcantar was consulted to evaluate patient during hospitalization. The patient's surgery will be delayed secondary to cellulitis. The patient is to follow up with Dr. Henson in one week and will be reevaluated at that time. The patient is to receive clearance from Dr. Henson to proceed with surgery. Dr. Henson also recommend multivitamin. Patient states he has multivitamins at home that were given to him from the bariatric center at the hospital and he does not require a prescription for a multivitamin. The patient was deemed stable for discharge per Dr. Sadler. He is to follow up on an outpatient basis. DISCHARGE DIAGNOSIS: Cellulitis of left hip, present on admission, improved with IV antibiotics History of previous episodes of cellulitis of left hip 3 Osteoarthritis with previous left total hip replacement Generalized anxiety disorder Obesity: BMI 37.4, patient scheduled for bariatric surgery this Thursday History of nicotine dependence, in remission, patient quit smoking cigarettes in 1998 Nurse practitioner note has been reviewed by physician. Signing provider agrees with the documented findings, assessment, and plan of care. Patient Condition at Discharge: Stable Plan - Discharge Summary Discharge Rx Participant: Yes New Discharge Prescriptions: New Sulfamethox-Tmp 200-40Mg/5Ml [Bactrim Suspension] 20 ml PO Q12HR #280 ml Continue Tamsulosin HCl [Flomax] 0.4 mg PO DAILY Acetaminophen Tab [Tylenol] 500 mg PO Q6H PRN PRN Reason: Pain Discharge Medication List Tamsulosin HCl [Flomax] 0.4 mg PO DAILY 09/14/17 [History] Acetaminophen Tab [Tylenol] 500 mg PO Q6H PRN 12/10/17 [History] Sulfamethox-Tmp 200-40Mg/5Ml [Bactrim Suspension] 20 ml PO Q12HR #280 ml [Rx] Follow up Appointment(s)/Referral(s): Anthony Key MD [Medical Doctor] - As Needed Tj Rice Jr, DO [Primary Care Provider] - 12/18/17 2:45 pm Orion Henson MD [STAFF PHYSICIAN] - 12/23/17 11:30 am Discharge Disposition: HOME SELF-CARE
[2017-12-17] MEDS ORDERED: VANCOMYCIN TROUGH DUE 1 EACH MISC MISCELLANE ONE (06:00)
== END 2017-12-16 13:14 | disposition home or self-care (01) | DRG 603 ==
LOC: EC 16:16 → 4MS4W 20:03 → OBSVTOIN 12-15 16:00
PROVIDERS: ADMIT Family Medicine; ATTEND Family Medicine
DX: L03.116 Cellulitis of left lower limb (principal); E66.9 Obesity, unspecified; J45.909 Unspecified asthma, uncomplicated; K21.9 Gastro-esophageal reflux disease without esophagitis; N40.0 Benign prostatic hyperplasia without lower urinary tract symptoms; M19.90 Unspecified osteoarthritis, unspecified site; M47.9 Spondylosis, unspecified; F41.1 Generalized anxiety disorder; Z87.891 Personal history of nicotine dependence; Z96.642 Presence of left artificial hip joint; Z90.49 Acquired absence of other specified parts of digestive tract; Z68.37 Body mass index [BMI] 37.0-37.9, adult
CPT/HCPCS: 36415; 80053; 80202; 83605; 85025; 87040; 96361; 96365; 96375; 99284

== ENCOUNTER → 2018-01-04 | Outpatient (CLI) | payer BC ==
--- NOTE | 2018-01-04 13:56 | NM ---
EXAMINATION TYPE: NM bone 3 phase DATE OF EXAM: 01/04/2018 COMPARISON: X-ray dated 07/08/2017 HISTORY: Low back pain Triple phase bone scintigraphy was performed following the injection of mCi Tc 99m MDP. Immediate im ages and 4 hours post injection images acquired. FINDINGS: Symmetric flow is seen. No abnormal soft tissue uptake. Normal renal uptake. There is abnormal uptake and delayed images involving L3-4 and L4-5 and L5-S1. Photopenic defect seen involving the left hip is compatible with previous surgery. Mild increased uptake on delayed images only surrounding the greater trochanter likely postsurgical. IMPRESSION: Findings are most typical of degenerative disc disease and are concordant with the previous x-ray.
== END | disposition home or self-care (01) ==
LOC: RADNMMAIN 07:23
PROVIDERS: ATTEND Family Medicine
DX: M51.36 Other intervertebral disc degeneration, lumbar region (principal)
CPT/HCPCS: 78315; A9503

== ENCOUNTER 2018-01-11 10:29 | Inpatient (IN) | payer BC ==
[~2018-01-11 10:29] MED LIST changes: +DEXAMETHASONE SOD PHOSPHATE 10 MG/ML 1 ML VIAL IV ONE; +ENOXAPARIN 30 MG/0.3 ML SYRINGE SQ ONE; -LACTATED RINGERS 1,000 ML IV SCH; +MORPHINE SULFATE 2 MG/ML SYRINGE IV PRN; +ONDANSETRON 4 MG/2 ML VIAL IVP ONE; +SCOPOLAMINE 1.5MG/72HR PATCH TRANSDERM ONE; +ceFAZolin IN SWFI 2 GM/20 ML SYRINGE IVP ONE
[2018-01-11] MEDS: LACTATED RINGERS 1,000 ML IV SCH (11:31)
--- NOTE | 2018-01-11 12:47 | P.GSHP ---
History of Present Illness H&P Date: 01/11/18 Chief Complaint: Morbid obesity Patient here today for elective sleeve gastrectomy. Patient was previously scheduled a month ago or so but developed a recurrent left hip infection. This procedure was held for that reason. The patient has had a prior upper endoscopy showing no evidence of hiatal hernia ulcer or mass. He has investigated other weight loss surgeries but feels the sleeve gastrectomy is most appropriate for him. The patient suffers from asthma, rheumatoid arthritis , osteoporosis, and GERD symptoms. No history of DVT or dysphagia. Past Medical History Past Medical History: Asthma, Chest Pain / Angina, GERD/Reflux, Osteoarthritis ( OA), Prostate Disorder Additional Past Medical History / Comment(s): BPH. History of Any Multi-Drug Resistant Organisms: None Reported Past Surgical History: Cholecystectomy, Heart Catheterization, Joint Replacement Additional Past Surgical History / Comment(s): LT CLAY. EGD, COLONOSCOPY. Past Anesthesia/Blood Transfusion Reactions: No Reported Reaction, Family History of Problems w/ Anesthesia Additional Past Anesthesia/Blood Transfusion Reaction / Comment(s): FATHER HAD PROB X1; "stopped breathing" Smoking Status: Former smoker - Past Family History Mother Family Medical History: No Reported History Medications and Allergies Home Medications Medication Instructions Recorded Confirmed Type Tamsulosin HCl [Flomax] 0.4 mg PO DAILY 09/14/17 12/31/17 History Acetaminophen Tab [Tylenol] 500 mg PO Q6H PRN 12/10/17 12/31/17 History Bariatric Vitamins 1 each PO DAILY 12/31/17 History Albuterol Nebulized [Ventolin PRN 01/11/18 History Nebulized] Allergies Allergy/AdvReac Type Severity Reaction Status Date / Time No Known Allergies Allergy Verified 01/11/18 10:53 Surgical - Exam Vital Signs Temp Pulse Resp BP Pulse Ox 98.0 F 75 16 117/59 95 01/11/18 11:11 01/11/18 11:11 01/11/18 11:11 01/11/18 11:11 01/11/18 11:11 Physical exam: General: Well-developed, well-nourished HEENT: Normocephalic, sclerae nonicteric Abdomen: Nontender, nondistended Extremities: No edema Neuro: Alert and oriented Assessment and Plan (1) Morbid obesity Narrative/Plan: Will proceed with sleeve gastrectomy. The risks of bleeding, infection, stenosis, stricture, leak, abscess, fistula formation, peritonitis, poor weight loss, reflux, vomiting, conversion to an open procedure, aborting sleeve gastrectomy, DC, PE, DVT, and were discussed. The patient understands and wishes to proceed. Current Visit: No Status: Acute Code(s): E66.01 - MORBID (SEVERE) OBESITY DUE TO EXCESS CALORIES SNOMED Code(s): 051356785
[2018-01-11] MEDS ORDERED: GLYCOPYRROLATE 0.2 MG/ML 2 ML VIAL ONE (12:54)
[2018-01-11] MEDS ORDERED: fentaNYL (PF) 50 MCG/ML 2 ML AMP ONE (12:54)
[2018-01-11] MEDS ORDERED: PROPOFOL 10 MG/ML 20 ML VIAL IV ONE (12:54)
[2018-01-11] MEDS ORDERED: NEOSTIGMINE 1 MG/ML 10 ML VIAL ONE (12:54)
[2018-01-11] MEDS ORDERED: SUCCINYLCHOLINE CHLORIDE VIAL 200 MG/10 ML VIAL IV ONE (12:54)
[2018-01-11] MEDS ORDERED: LIDOCAINE 1% INJ 10MG/ML (20 ML MDV) ONE (12:54)
[2018-01-11] MEDS ORDERED: ROCURONIUM BROMIDE 10 MG/ML 10 ML VIAL IV ONE (12:54)
[2018-01-11] MEDS ORDERED: MIDAZOLAM 2 MG/2 ML VIAL ONE (12:54)
[2018-01-11] MEDS ORDERED: BUPIVACAINE (PF) 0.25% 30 ML VIAL SQ ONE ×2 (13:22)
[2018-01-11] MEDS ORDERED: LACTATED RINGERS 1,000 ML IV ONE ×2 (13:29)
[2018-01-11] MEDS ORDERED: METHYLENE BLUE 3 MG in DEXTROSE 5% IN WATER 500 ML IRRIGATION ONE ×2 (13:38)
[2018-01-11] MEDS ORDERED: NALOXONE 0.4 MG/ML 1 ML VIAL IV PRN (15:13)
[2018-01-11] MEDS ORDERED: diphenhydrAMINE 50 MG/ML 1 ML VIAL IVP PRN (15:13)
--- NOTE | 2018-01-11 15:19 | P.OP ---
Date of Procedure: 01/11/18 Procedure(s) Performed: PREOPERATIVE DIAGNOSIS: Morbid obesity, arthritis, GERD POSTOPERATIVE DIAGNOSIS: Same PROCEDURE: Laparoscopic sleeve gastrectomy SURGEON: Shahid EBL: Minimal ANESTHESIA: General COMPLICATIONS: None OPERATIVE PROCEDURE: Patient was placed in the operating table in the supine position. He was placed under general anesthesia at that time. The abdomen was prepped and draped in sterile fashion after the patient was placed in lithotomy. A 5 mm optical trocar was used to enter the abdominal cavity in the left upper quadrant. Insufflation took place to 15 millimeters mercury. An additional right subxiphoid 5 mm trocar was then placed under direct visualization and then removed. 2 additional 5 mm trochars were placed in the right upper quadrant and left upper quadrant under direct visualization and a 15 mm trocar in the supraumbilical location. The liver was retracted using a medium Marcin liver retractor through the right subxiphoid trocar site. The hiatus was inspected. The patient had no visible hiatal hernia At that point I moved to the mid aspect of the greater curvature the stomach. The short gastric vasculature was divided using a LigaSure device proximally. I then switched and divided the short gastrics distally to a 3-4 cm from the pylorus. The dissection took place up to the left diaphragmatic crura at that point. The posterior short gastrics were likewise divided using the LigaSure device. Once the stomach was fully mobilized the blunt tipped 40-English bougie dilator was advanced into the stomach and advanced all the way to the prepyloric location. A black echelon 60 stapler was utilized and fired tangentially across the antrum taking care to avoid narrowing at the incisura angularis. Subsequent firings of the stapler took place. A total of 5 green echelon 60 staplers with seam guard took place proximally staying on the outer edge of our dilator. Once we reached the most proximal portion of the stomach a single firing of the gold echelon 60 stapler without seen guard took place. The oral gastric tube was reinserted. The stomach was insufflated with approximately 100 mL of methylene blue. No evidence of leak or obstruction was seen. There were 2 separate sites of oozing from the staple line a controlled using a 12 mm clipper. The distal aspect of the sleeve was then reapproximated to the gastrosplenic and gastrocolic ligament using a short running 2-0 strata fix suture. This was done to prevent kinking or twisting of the sleeve. Tisseel fibrin glue was used along the length of the staple line. The stomach remnant was removed from the 15 mm trocar site without difficulty. The fascia at the 15 more site was closed using interrupted 0 Vicryl sutures with the laparoscopic suture passer and Torrey Jameel technique. The insufflation was evacuated. The skin at all 5 incisions were closed using 4-0 Monocryl sutures. Steri-Strips and sterile dressings were then applied. DISPOSITION: Stable to recovery room
[2018-01-11] MEDS ORDERED: fentaNYL (PF) 50 MCG/ML 2 ML AMP IVP ONE ×4 (15:43→16:43)
[2018-01-11] MEDS ORDERED: ACETAMINOPHEN IV (For NPO) 1,000 MG in EMPTY BAG 1 BAG IVPB ONE (16:00)
[2018-01-11] MEDS: ALBUTEROL NEBULIZED 2.5 MG/3 ML INHALATION SCH ×2 (16:24→19:35)
[2018-01-11] MEDS ORDERED: ONDANSETRON 4 MG/2 ML VIAL IVP ONE (16:42)
[2018-01-11] MEDS: 0.9% NACL WITH KCL 20 MEQ/L 1,000 ML IV SCH ×2 (17:18→23:58)
[2018-01-11] MEDS: ONDANSETRON 4 MG/2 ML VIAL IVP PRN (20:05)
[2018-01-11] MEDS: KETOROLAC 30 MG/ML 1 ML VIAL IVP SCH (20:10)
[2018-01-12] MEDS: KETOROLAC 30 MG/ML 1 ML VIAL IVP SCH ×4 (01:49→20:59)
[2018-01-12 03:23] VITALS: RESP 16
[2018-01-12] MEDS: LACTATED RINGERS 1,000 ML IV SCH (06:15)
[2018-01-12] MEDS: 0.9% NACL WITH KCL 20 MEQ/L 1,000 ML IV SCH (06:15)
[2018-01-12] MEDS: ONDANSETRON 4 MG/2 ML VIAL IVP PRN (06:22)
[2018-01-12 07:33] LABS: Basophils % (A) 0 %; Eosinophils % (A) 0 %; HGB 12.2 gm/dL (13.0-17.5); Lymphocytes % (A) 18 %; MCH 28.6 pg (25.0-35.0); MCV 89.2 fL (80.0-100.0); Mean Platelet Volume 6.5; Monocytes # (A) 0.7 k/uL (0-1.0); Monocytes % (A) 7 %; Neutrophils # (A) 8.1 k/uL (1.3-7.7); Neutrophils % (A) 73 %; Platelet Count 317 k/uL (150-450); RBC 4.26 m/uL (4.30-5.90); RDW 13.2 % (11.5-15.5)
[2018-01-12 07:53] LABS: Anion Gap 13 mmol/L; Blood Urea Nitrogen 14 mg/dL (9-20); Calcium 8.5 mg/dL (8.4-10.2); Carbon Dioxide 21 mmol/L (22-30); Chloride 107 mmol/L (98-107); Magnesium 2.1 mg/dL (1.6-2.3); Phosphorus 2.5 mg/dL (2.5-4.5); Potassium 4.3 mmol/L (3.5-5.1); Sodium 141 mmol/L (137-145)
[2018-01-12] MEDS ORDERED: KETOROLAC 30 MG/ML 1 ML VIAL IVP SCH (08:00)
[2018-01-12] MEDS: PANTOPRAZOLE 40 MG/10 ML VIAL IV SCH (08:28)
[2018-01-12] MEDS: ENOXAPARIN 40 MG/0.4 ML SYRINGE SQ SCH ×2 (08:35→20:59)
[2018-01-12] MEDS: MORPHINE SULFATE 4MG/4ML SYRG IVP PRN ×2 (08:38→12:02)
[2018-01-12] MEDS: ALBUTEROL NEBULIZED 2.5 MG/3 ML INHALATION SCH ×4 (08:39→20:00)
[2018-01-12] MEDS: SIMETHICONE 40 MG/0.6 ML DROPS 2,000 MG/30 ML BOTTLE PO PRN ×2 (08:45→20:51)
[2018-01-12] MEDS: HYOSCYAMINE ORAL DROPS 1.875 MG/15 ML BOTTLE PO PRN ×2 (08:47→20:51)
--- NOTE | 2018-01-12 10:32 | FL ---
EXAMINATION TYPE: FL UGI DATE OF EXAM: 01/12/2018 COMPARISON: NONE HISTORY: Post op gastric sleeve yesterday TECHNIQUE: A single contrast UGI study is performed. 25 ml omnipaque 350, 1min 2sec fl time. 12 fluo roscopic images saved. FINDINGS: The esophagus shows mildly delayed motility at the gastroesophageal junction most commonly related to minimal obstruction from postoperative edema. No evidence of hiatal hernia or obstruction/stricture noted. No evidence of gastroesophageal reflux. No evidence of gastric leak. IMPRESSION: Minimally delayed propulsion at the gastroesophageal junction, most commonly related to p ostoperative edema. No obstruction, stricture or evidence of leak.
--- NOTE | 2018-01-12 11:42 | P.CONS ---
History of Present Illness - Reason for Consult Consult date: 01/12/18 medical management - Chief Complaint s/p sleeve gastrectomy - History of Present Illness 52-year-old male who underwent elective sleeve gastrectomy by Dr. Key on 01/11/2018. Dr. Sadler was consulted for medical management. The patient was hospitalized about a month ago for cellulitis of the left hip. He received IV antibiotics and was discharged home on Bactrim. He has had cellulitis of the left hip 3 additional times since his hip replacement 4 years ago. The patient also has a history of osteoarthritis and generalized anxiety disorder. The patient is a former cigarette smoker and quit smoking in 1998. The patient was evaluated at the bedside with Dr. Sadler. The patient states he had a "rough morning" and was very nauseous and was dry heaving which increased his pain at the surgical sites. The patient states his nausea has since resolved and he is feeling better. Denies shortness of breath. Denies chest pain. Vital signs remain stable. He is afebrile. He is to undergo upper GI series this AM. Review of Systems GENERAL: Patient denies fever. Denies chills. EYES: Denies blurred vision. Denies vision changes. Denies eye pain. EARS, NOSE, MOUTH, & THROAT: Denies headache. Denies sore throat. Denies ear pain. RESPIRATORY: Denies cough. Denies shortness of breath. Denies sputum production. Denies hemoptysis. CARDIOVASCULAR: Denies chest pain or pressure. Denies palpitations. Denies arrhythmias. GASTROINTESTINAL: Positive for nausea this am which has resolved. Denies abdominal pain. Denies diarrhea. Denies constipation. Denies heartburn. Denies blood in the stool. GENITOURINARY: Denies urinary frequency. Denies burning. Denies dysuria. Denies cloudy urine. Denies blood in the urine. MUSCULOSKELETAL: Denies myalgias. Denies joint swelling. Denies decreased range of motion beyond patients baseline. INTEGUMENTARY: Denies pruitis. Denies rash. PSYCHIATRIC: Denies suicidal or homicial ideations. ENDOCRINE: Denies weight change. Denies polydipsia. Denies polyuria. HEMATOLOGIC: Denies bleeding disorders. Past Medical History Past Medical History: Asthma, Chest Pain / Angina, GERD/Reflux, Osteoarthritis ( OA), Prostate Disorder Additional Past Medical History / Comment(s): BPH. History of Any Multi-Drug Resistant Organisms: None Reported Past Surgical History: Cholecystectomy, Heart Catheterization, Joint Replacement Additional Past Surgical History / Comment(s): LT CLYA. EGD, COLONOSCOPY. Past Anesthesia/Blood Transfusion Reactions: No Reported Reaction, Family History of Problems w/ Anesthesia Additional Past Anesthesia/Blood Transfusion Reaction / Comm: FATHER HAD PROB X1 ; "stopped breathing" Past Psychological History: Anxiety Additional Psychological History / Comment(s): and lives in the family home with his and one daughter, other adult daughter lives locally. Works for the [employer]. Did have experience. No recent international travel. No animal exposures. Has not smoked since 1998. Denies significant alcohol or recreational drug use Smoking Status: Former smoker Past Alcohol Use History: None Reported Additional Past Alcohol Use History / Comment(s): QUIT SMOKING 07/12/1999, FOR 15 YRS, 1.5 PPD. Past Drug Use History: None Reported - Past Family History Mother Family Medical History: No Reported History Medications and Allergies Home Medications Medication Instructions Recorded Confirmed Type Tamsulosin HCl [Flomax] 0.4 mg PO DAILY 09/14/17 01/11/18 History Acetaminophen Tab [Tylenol] 500 mg PO Q6H PRN 12/10/17 01/11/18 History Bariatric Vitamins 1 tab PO DAILY 12/31/17 01/11/18 History Albuterol Nebulized [Ventolin 2.5 mg INHALATION RT-Q6H PRN 01/11/18 01/11/18 History Nebulized] Bisacodyl [Dulcolax] 5 mg PO DAILY PRN #10 tablet. 01/11/18 Rx Hydrocodone/Acetaminophen [[place] 1 - 2 each PO Q4HR PRN #14 tab 01/11/18 Rx 5-325] Omeprazole [PriLOSEC] 20 mg PO AC-BRKFST #90 cap 01/11/18 Rx Ondansetron Odt [Zofran Odt] 4 mg PO Q8HR PRN #9 tab 01/11/18 Rx Simethicone 40 mg/0.6 ml Drops 40 mg PO PCHS PRN #30 ml 01/11/18 Rx [Mylicon Drops] Allergies Allergy/AdvReac Type Severity Reaction Status Date / Time No Known Allergies Allergy Verified 01/11/18 16:24 Physical Exam Vitals: Vital Signs Temp Pulse Pulse Resp BP BP Pulse Ox 01/12/18 07:11 98.2 F 16 133/62 93 L 01/12/18 01:48 98.6 F 84 16 135/70 95 01/11/18 22:51 92 L 01/11/18 22:43 93 L 01/11/18 21:00 96 01/11/18 19:45 84 01/11/18 19:35 80 01/11/18 18:30 81 130/69 01/11/18 18:15 90 122/71 01/11/18 18:00 87 131/70 01/11/18 17:45 76 132/68 01/11/18 17:30 76 147/83 01/11/18 17:15 71 146/76 01/11/18 17:00 98.1 F 72 17 156/79 99 01/11/18 16:40 67 16 134/63 100 01/11/18 16:25 76 16 140/70 95 01/11/18 16:10 75 16 140/70 99 01/11/18 15:55 75 16 137/71 100 01/11/18 15:40 77 16 137/71 99 01/11/18 15:25 97.9 F 87 16 139/70 99 Intake and Output 01/11/18 01/12/18 01/12/18 22:59 06:59 14:59 Intake Total 850 1000 Output Total 400 Balance 450 1000 Intake: IV 550 Intake, IV Titration 300 1000 Amount 0.9% NaCl with KCl 20 Meq 300 1000 /l 1,000 ml @ 150 mls/hr IV .[facility]H40M [facility] Rx#: [id number] Oral 0 Output: Urine 400 Other: # Voids 3 3 GENERAL: This is a 52-year-old male in no apparent distress at the time of examination. Pleasant and cooperative. HEENT: Head is atraumatic, normocephalic. Pupils are equal, round, and reactive to light. Sclerae anicteric. Conjunctivae are clear. Mucus membranes of the mouth are moist. Neck is supple. RESPIRATORY: Clear to ausculation. No wheezes, rales, or rhonchi. No use of accessory muscles. Patient maintaining oxygen saturation greater than 92%. No chest wall tenderness is noted on palpation or with deep breathing. CARDIOVASCULAR: Regular rate and rhythm. S1 and S2 noted. No systolic or diastolic murmur auscultated. No JVD noted. No S3 or S4 noted. GASTROINTESTINAL: No distention noted. Abdomen soft and round. Bowel sounds auscultated x 4 quadrants. Appropriate surgical tenderness noted upon palpation. INTEGUMENTARY: Surgical sites without drainage or signs of infection. No cyanosis. No jaundice. No rashes noted. No cellulitis noted. EXTREMITIES: 2+ peripheral pulses. No evidence of peripheral edema. No calf tenderness noted. NEUROLOGIC: Cranial nerves II-XII intact. PSYCHIATRIC: Awake, alert, and oriented X 3. Appropriate affect. Intact judgement and insight. Results CBC & Chem 7: 01/12/18 06:42 01/12/18 06:42 Labs: Abnormal Lab Results - Last 24 Hours (Table) 01/12/18 01/12/18 Range/Units 06:42 06:42 WBC 11.0 H (3.8-10.6) k/uL RBC 4.26 L (4.30-5.90) m/uL Hgb 12.2 L (13.0-17.5) gm/dL Hct 38.0 L (39.0-53.0) % Neutrophils # 8.1 H (1.3-7.7) k/uL Carbon Dioxide 21 L (22-30) mmol/L Assessment and Plan Plan: ASSESSMENT: Obesity: BMI 35.3, S/P sleeve gastrectomy, POD #1 History of recent hospitalization for left hip cellulitis History of left total hip arthroplasty with previous episodes of cellulitis 3 Generalized anxiety disorder History of nicotine dependence, in remission, patient quit smoking in 1998 PLAN: Continue postoperative care per Dr. Key Patient to undergo upper GI series today Pain control Activity as tolerated IS 10x an hour Home meds as appropriate Monitor labs GI prophylaxis: Protonix 40 mg IV Daily DVT prophylaxis: Lovenox 40mg q12 hours Monitor vital signs and address as appropriate Further recommendations pending patient's course Nurse practitioner note has been reviewed by physician. Signing provider agrees with the documented findings, assessment, and plan of care.
--- NOTE | 2018-01-12 12:06 | P.PN ---
Subjective Progress Note Date: 01/12/18 Principal diagnosis: Morbid obesity Patient doing well today. He did have some dry heaves earlier this morning that is resolved. Pain is improved. Upper GI shows no evidence of leak or obstruction. White blood cell count minimally elevated. He is afebrile. Objective - Vital Signs Vital signs: Vital Signs Temp 98.2 F 01/12/18 07:11 Pulse 84 01/12/18 01:48 Resp 16 01/12/18 07:11 BP 133/62 01/12/18 07:11 Pulse Ox 93 L 01/12/18 07:11 Intake & Output 01/11/18 01/12/18 01/12/18 18:59 06:59 18:59 Intake Total 1751 1300 Output Total 410 Balance 1341 1300 Weight 111.5 kg Intake: IV 1751 Intake, IV Titration 1300 Amount 0.9% NaCl with KCl 20 Meq 1300 /l 1,000 ml @ 150 mls/hr IV .Q6H40M [facility] Rx#: [id number] Oral 0 Output: Urine 400 Estimated Blood Loss 10 Other: # Voids 3 - Exam Abdomen: Soft, nondistended, mild incisional tenderness, dressings intact - Labs CBC & Chem 7: 01/12/18 06:42 01/12/18 06:42 Labs: Abnormal Lab Results - Last 24 Hours (Table) 01/12/18 01/12/18 Range/Units 06:42 06:42 WBC 11.0 H (3.8-10.6) k/uL RBC 4.26 L (4.30-5.90) m/uL Hgb 12.2 L (13.0-17.5) gm/dL Hct 38.0 L (39.0-53.0) % Neutrophils # 8.1 H (1.3-7.7) k/uL Carbon Dioxide 21 L (22-30) mmol/L Assessment and Plan (1) Morbid obesity Narrative/Plan: Doing well postop. continue bariatric liquid diet. ambulate. recheck labs in am. Current Visit: Yes Status: Acute Code(s): E66.01 - MORBID (SEVERE) OBESITY DUE TO EXCESS CALORIES SNOMED Code(s): 897565552
[2018-01-12 13:22] VITALS: BMI 35.2
[2018-01-12] MEDS: 1: MVI, ADULT NO.4 WITH VIT K 10 ML, THIAMINE 100 MG, FOLIC ACID 1 MG, POTASSIUM CHLORID IV SCH ×12 (16:02→21:33)
[2018-01-13] MEDS: SIMETHICONE 40 MG/0.6 ML DROPS 2,000 MG/30 ML BOTTLE PO PRN (06:58)
[2018-01-13] MEDS ORDERED: BISACODYL 5 MG TABLET.DR PO PRN (08:00)
[2018-01-13] MEDS: KETOROLAC 30 MG/ML 1 ML VIAL IVP SCH ×3 (08:08→15:53)
[2018-01-13] MEDS: LACTATED RINGERS 1,000 ML IV SCH (08:09)
[2018-01-13] MEDS: ALBUTEROL NEBULIZED 2.5 MG/3 ML INHALATION SCH ×3 (08:20→15:42)
[2018-01-13] MEDS: PANTOPRAZOLE 40 MG/10 ML VIAL IV SCH (08:54)
[2018-01-13] MEDS: ENOXAPARIN 40 MG/0.4 ML SYRINGE SQ SCH (08:56)
[2018-01-13] MEDS: 1: MVI, ADULT NO.4 WITH VIT K 10 ML, THIAMINE 100 MG, FOLIC ACID 1 MG, POTASSIUM CHLORID IV SCH ×6 (10:08)
[2018-01-13] MEDS ORDERED: MORPHINE ORAL SOLN 10 MG/5 ML CUP PO PRN (11:03)
--- NOTE | 2018-01-13 11:16 | P.PN ---
Subjective Progress Note Date: 01/13/18 52-year-old male who underwent elective sleeve gastrectomy by Dr. Key on 01/11/2018. Dr. Sadler was consulted for medical management. The patient was hospitalized about a month ago for cellulitis of the left hip. He received IV antibiotics and was discharged home on Bactrim. He has had cellulitis of the left hip 3 additional times since his hip replacement 4 years ago. The patient also has a history of osteoarthritis and generalized anxiety disorder. The patient is a former cigarette smoker and quit smoking in 1998. 01/12/2018 The patient was evaluated at the bedside with Dr. Sadler. The patient states he had a "rough morning" and was very nauseous and was dry heaving which increased his pain at the surgical sites. The patient states his nausea has since resolved and he is feeling better. Denies shortness of breath. Denies chest pain. Vital signs remain stable. He is afebrile. He is to undergo upper GI series this AM. 01/13/2018 Patient evaluated this morning. Patient is sitting up in bed. Awake and alert. Denies shortness of breath or coughing. Patient is on room air with oxygen saturations greater than 92%. Patient underwent upper GI yesterday which did not show evidence of leak or obstruction. Patient is tolerating clear liquid diet. He does complain of some gas pains. Reports positive flatus. Denies nausea. Patient states he has been ambulating in the hallway. Blood pressure 134 /78. Heart rate 70-80s. Afebrile. Patient is anticipating discharge home today. Objective - Vital Signs Vital signs: Vital Signs Temp 97.8 F 01/13/18 08:10 Pulse 74 01/13/18 08:10 Resp 16 01/12/18 20:00 BP 134/78 01/13/18 08:10 Pulse Ox 96 01/13/18 08:10 Intake & Output 01/12/18 01/13/18 01/13/18 18:59 06:59 18:59 Intake Total 1100 800 500 Balance 1100 800 500 Weight 111.5 kg Intake: IV 800 800 0.9% NaCl with KCl 20 Meq 800 800 /l 1,000 ml @ 100 mls/hr IV .BY DURATION [facility] Rx#: [id number] Oral 300 500 Other: # Voids 3 2 - Exam GENERAL: This is a 52-year-old male in no apparent distress at the time of examination. Pleasant and cooperative. HEENT: Head is atraumatic, normocephalic. Pupils are equal, round, and reactive to light. Sclerae anicteric. Conjunctivae are clear. Mucus membranes of the mouth are moist. Neck is supple. RESPIRATORY: Clear to ausculation. No wheezes, rales, or rhonchi. No use of accessory muscles. Patient maintaining oxygen saturation greater than 92%. No chest wall tenderness is noted on palpation or with deep breathing. CARDIOVASCULAR: Regular rate and rhythm. S1 and S2 noted. No systolic or diastolic murmur auscultated. No JVD noted. No S3 or S4 noted. GASTROINTESTINAL: No distention noted. Abdomen soft and round. Bowel sounds auscultated x 4 quadrants. Appropriate surgical tenderness noted upon palpation. INTEGUMENTARY: Surgical sites without drainage or signs of infection. No cyanosis. No jaundice. No rashes noted. No cellulitis noted. EXTREMITIES: 2+ peripheral pulses. No evidence of peripheral edema. No calf tenderness noted. NEUROLOGIC: Cranial nerves II-XII intact. PSYCHIATRIC: Awake, alert, and oriented X 3. Appropriate affect. Intact judgement and insight. - Labs CBC & Chem 7: 01/12/18 06:42 01/12/18 06:42 Assessment and Plan Plan: ASSESSMENT: Obesity: BMI 35.3, S/P sleeve gastrectomy, POD #2 History of recent hospitalization for left hip cellulitis History of left total hip arthroplasty with previous episodes of cellulitis 3 Generalized anxiety disorder History of nicotine dependence, in remission, patient quit smoking in 1998 PLAN: Continue postoperative care per Dr. Key Activity as tolerated. Encourage ambulation IS 10x an hour GI prophylaxis: Protonix 40 mg IV Daily DVT prophylaxis: Lovenox 40mg q12 hours Monitor vital signs and address as appropriate Further recommendations pending patient's course Patient is cleared for discharge from a medical standpoint when cleared by Dr. Key Nurse practitioner note has been reviewed by physician. Signing provider agrees with the documented findings, assessment, and plan of care.
--- NOTE | 2018-01-13 11:26 | P.PN ---
Subjective Progress Note Date: 01/13/18 Principal diagnosis: Morbid obesity Patient complaining of some pain with drinking liquids. He is ambulating. CBC pending. He is afebrile. Pain is improved from yesterday however he is not drinking much liquids. Objective - Vital Signs Vital signs: Vital Signs Temp 97.8 F 01/13/18 08:10 Pulse 74 01/13/18 08:10 Resp 16 01/12/18 20:00 BP 134/78 01/13/18 08:10 Pulse Ox 96 01/13/18 08:10 Intake & Output 01/12/18 01/13/18 01/13/18 18:59 06:59 18:59 Intake Total 1100 800 500 Balance 1100 800 500 Weight 111.5 kg Intake: IV 800 800 0.9% NaCl with KCl 20 Meq 800 800 /l 1,000 ml @ 100 mls/hr IV .BY DURATION [facility] Rx#: [id number] Oral 300 500 Other: # Voids 3 2 - Exam Abdomen: Soft, nondistended, minimal tenderness, incisions clean and dry - Labs CBC & Chem 7: 01/12/18 06:42 01/12/18 06:42 Assessment and Plan (1) Morbid obesity Narrative/Plan: Ambulate. Check CBC. Increase liquid intake. Current Visit: Yes Status: Acute Code(s): E66.01 - MORBID (SEVERE) OBESITY DUE TO EXCESS CALORIES SNOMED Code(s): 043331314
[2018-01-13 11:52] LABS: Basophils % (A) 0 %; Eosinophils # (A) 0.1 k/uL (0-0.7); Eosinophils % (A) 1 %; HGB 12.5 gm/dL (13.0-17.5); Lymphocytes # (A) 1.6 k/uL (1.0-4.8); Lymphocytes % (A) 20 %; MCH 29.1 pg (25.0-35.0); MCV 88.2 fL (80.0-100.0); Mean Platelet Volume 6.4; Monocytes # (A) 0.4 k/uL (0-1.0); Monocytes % (A) 6 %; Neutrophils # (A) 5.7 k/uL (1.3-7.7); Neutrophils % (A) 71 %; Platelet Count 301 k/uL (150-450); RBC 4.31 m/uL (4.30-5.90); RDW 13.2 % (11.5-15.5)
[2018-01-13 15:46] VITALS: BP 134/69; PULSE 66; TEMP 97.7
== END 2018-01-13 18:25 | disposition home or self-care (01) | DRG 621 ==
LOC: 2ORMAIN 10:29 → 3SUR 15:13
PROVIDERS: ADMIT Surgery; ATTEND Surgery
PROC: 0DB64Z3 Excision of Stomach, Percutaneous Endoscopic Approach, Vertical (ICD-10-PCS; principal; 2018-01-11 13:00)
DX: E66.01 Morbid (severe) obesity due to excess calories (principal); F17.201 Nicotine dependence, unspecified, in remission; F41.1 Generalized anxiety disorder; J45.909 Unspecified asthma, uncomplicated; K21.9 Gastro-esophageal reflux disease without esophagitis; M81.0 Age-related osteoporosis without current pathological fracture; M06.9 Rheumatoid arthritis, unspecified; N40.0 Benign prostatic hyperplasia without lower urinary tract symptoms; M19.90 Unspecified osteoarthritis, unspecified site; Z96.642 Presence of left artificial hip joint; Z79.899 Other long term (current) drug therapy; Z90.49 Acquired absence of other specified parts of digestive tract; Z79.891 Long term (current) use of opiate analgesic; Z68.35 Body mass index [BMI] 35.0-35.9, adult; Z86.19 Personal history of other infectious and parasitic diseases
CPT/HCPCS: 74240; 80051; 82310; 82565; 83735; 84100; 84520; 85025; 88307; 94640; 94762

== ENCOUNTER → 2018-01-19 | Outpatient (CLI) | payer BC ==
[2018-01-19 13:55] VITALS: BP 128/59; PULSE 70; RESP 16; TEMP 97.6; BMI 35.4
--- NOTE | 2018-01-19 14:54 | P.BASOAP ---
Subjective Progress Note Date: 01/19/18 Principal diagnosis: Morbid obesity Patient doing well today. He underwent sleeve gastrectomy 8 days ago. Complaining of some itching of the incision sites. Good weight loss. Tolerating good volume of liquids per day. Protein only approximately 30-40 g per day. Denies nausea vomiting. No regurgitation. Objective - Vital Signs Vital signs: Vital Signs Temp 97.6 F 01/19/18 13:52 Pulse 70 01/19/18 13:52 Resp 16 01/19/18 13:52 BP 128/59 01/19/18 13:52 Pulse Ox Intake & Output 01/18/18 01/19/18 01/19/18 18:59 06:59 18:59 Weight 106.623 kg - Exam Abdomen: Soft, nondistended, incision with slight redness at Steri-Strips sites at all 5 incisions, nontender Assessment/Plan (1) Morbid obesity Narrative/Plan: Overall patient doing well. We will remove the Steri-Strips given the suspicion of an ALLERGIC reaction there. Increase protein intake. Follow-up evaluation 2 weeks. Continue PPI. Plan: Date: 01/19/18 Initial Weight: 125.01 kg Initial BMI: 41.5 Current Weight: 106.623 kg Current BMI: 35.4 Type of Surgery: Total Volume in Band: Previous Volume: Volume Removed: Volume Added: Band Size:
== END | disposition home or self-care (01) ==
LOC: BARWHC3 13:43
PROVIDERS: ATTEND Surgery
DX: Z48.815 Encounter for surgical aftercare following surgery on the digestive system (principal); K95.89 Other complications of other bariatric procedure; Z98.84 Bariatric surgery status
CPT/HCPCS: 97803; 99211

== ENCOUNTER → 2018-02-02 | Outpatient (CLI) | payer BC ==
[2018-02-02 13:15] VITALS: BMI 33.6
[2018-02-02 14:08] LABS: HCT 40.5 % (39.0-53.0); HGB 13.4 gm/dL (13.0-17.5); MCH 28.9 pg (25.0-35.0); MCV 87.7 fL (80.0-100.0); Mean Platelet Volume 6.4; Platelet Count 316 k/uL (150-450); RBC 4.62 m/uL (4.30-5.90); RDW 13.2 % (11.5-15.5); WBC 8.9 k/uL (3.8-10.6)
[2018-02-02 14:24] LABS: ALT 35 U/L (21-72); AST 35 U/L (17-59); Albumin 4.3 g/dL (3.5-5.0); Alkaline Phosphatase 69 U/L (38-126); Anion Gap 14 mmol/L; Blood Urea Nitrogen 19 mg/dL (9-20); Calcium 9.6 mg/dL (8.4-10.2); Carbon Dioxide 26 mmol/L (22-30); Chloride 101 mmol/L (98-107); Glucose 84 mg/dL (74-99); Potassium 4.7 mmol/L (3.5-5.1); Sodium 141 mmol/L (137-145); Total Bilirubin 0.5 mg/dL (0.2-1.3); Total Protein 6.8 g/dL (6.3-8.2)
--- NOTE | 2018-02-02 14:38 | P.BASOAP ---
Subjective Progress Note Date: 02/02/18 Principal diagnosis: Morbid obesity Patient doing well today. Surgery was performed on 01/11. He was last seen 2 weeks ago. Since that time he has had 12 pounds weight loss. His itching has resolved. He has excellent liquid and protein intake. No nausea or vomiting. He did have heartburn on 1 episode for approximately 2 hours but none since. Still taking his PPIs. Patient does describe feeling somewhat irritable at times at home with his stating that he had a shorter temper. He did discuss this with his primary care physician who wants to observe for another 1- 2 weeks. Objective - Vital Signs Vital signs: Intake & Output 02/01/18 02/02/18 02/02/18 18:59 06:59 18:59 Weight 101.151 kg - Exam Abdomen: Soft, nondistended, incision clean and dry - Labs CBC & Chem 7: 02/02/18 13:46 Assessment/Plan (1) Morbid obesity Narrative/Plan: Continue dietary and exercise regimen. May return to work tomorrow. Continue antiacid therapy. Monitor mood swings and if these persist will discuss again with his PCP and psych. Follow-up 4-6 weeks. We'll check one month labs next week. Plan: Date: 02/02/18 Initial Weight: 125.01 kg Initial BMI: 41.5 Current Weight: 101.151 kg Current BMI: 33.6 Type of Surgery: Total Volume in Band: Previous Volume: Volume Removed: Volume Added: Band Size:
[2018-02-02 18:41] LABS: Vitamin D 25 Hydroxy 25.1 ng/mL (30.0-100.0)
[2018-02-02 19:00] LABS: Folate, Serum 13.6 ng/mL
== END | disposition home or self-care (01) ==
LOC: BARWHC3 12:38
PROVIDERS: ATTEND Surgery
DX: Z09 Encounter for follow-up examination after completed treatment for conditions other than malignant neoplasm (principal); E66.01 Morbid (severe) obesity due to excess calories; E55.9 Vitamin D deficiency, unspecified; Z68.33 Body mass index [BMI] 33.0-33.9, adult; Z98.84 Bariatric surgery status
CPT/HCPCS: 36415; 80053; 82306; 82607; 82746; 83540; 84425; 85027; 97803; 99211

== ENCOUNTER → 2018-11-23 | Outpatient (CLI) | payer BC ==
[2018-11-23 15:02] VITALS: BP 111/69; PULSE 70; RESP 16; TEMP 97.5; BMI 26.2
--- NOTE | 2018-11-23 17:16 | P.BASOAP ---
Subjective Progress Note Date: 11/23/18 Principal diagnosis: Morbid obesity Patient doing well today. His lost another 10 pounds since his last visit. Denies reflux. No vomiting. No pain. Tolerating solids. No skin related issues. Objective - Vital Signs Vital signs: Vital Signs Temp 97.5 F L 11/23/18 15:00 Pulse 70 11/23/18 15:00 Resp 16 11/23/18 15:00 BP 111/69 11/23/18 15:00 Pulse Ox Intake & Output 11/22/18 11/23/18 11/23/18 18:59 06:59 18:59 Weight 78.925 kg - Exam Abdomen: Soft, nontender, nondistended Assessment/Plan (1) Morbid obesity Narrative/Plan: Patient is very well postoperatively. He has lost over 100 pounds. No skin related issues. Follow-up in December. We'll check one year labs at that time Current Visit: Yes Plan: Date: 11/23/18 Initial Weight: 125.01 kg Initial BMI: 41.5 Current Weight: 78.925 kg Current BMI: 26.2 Type of Surgery: Total Volume in Band: Previous Volume: Volume Removed: Volume Added: Band Size:
== END | disposition home or self-care (01) ==
LOC: BARWHC3 14:45
PROVIDERS: ATTEND Surgery
DX: E66.01 Morbid (severe) obesity due to excess calories (principal); Z68.26 Body mass index [BMI] 26.0-26.9, adult
CPT/HCPCS: 97803; 99211

== ENCOUNTER → 2019-01-18 | Outpatient (CLI) | payer BC | END | disposition home or self-care (01) | LOC: LABWHC1 15:41 | PROVIDERS: ATTEND Surgery | DX: Z53.9 Procedure and treatment not carried out, unspecified reason (principal) ==

== ENCOUNTER → 2019-01-18 | Outpatient (CLI) | payer BC ==
--- NOTE | 2019-01-18 15:44 | P.BASOAP ---
Subjective Progress Note Date: 01/18/19 Principal diagnosis: Morbid obesity Patient returns for his 1 year visit. Doing well at this time. He has lost another 2 pounds since that time. No vomiting. Very little reflux symptoms. Is not taking antiacids. Objective - Exam Abdomen: Soft, nontender, nondistended Assessment/Plan (1) Morbid obesity Narrative/Plan: Patient doing great postoperatively. Maintaining his weight at this time. Continue dietary and exercise regimen. Follow-up evaluation 6 months. Plan: Date: Initial Weight: 125.01 kg Initial BMI: Current Weight: Current BMI: Type of Surgery: Total Volume in Band: Previous Volume: Volume Removed: Volume Added: Band Size:
[2019-01-18 17:02] LABS: HCT 46.7 % (39.0-53.0); HGB 15.3 gm/dL (13.0-17.5); MCH 30.3 pg (25.0-35.0); MCHC 32.7 g/dL (31.0-37.0); MCV 92.8 fL (80.0-100.0); Mean Platelet Volume 6.5; Platelet Count 305 k/uL (150-450); RBC 5.04 m/uL (4.30-5.90); RDW 13.3 % (11.5-15.5); WBC 7.6 k/uL (3.8-10.6)
[2019-01-19 00:25] LABS: Albumin 4.5 g/dL (3.80-4.90); Albumin/Globulin Ratio 2.37 (1.60-3.17); Anion Gap 7.2 mmol/L (4.00-12.00); Calcium 9.4 mg/dL (8.7-10.3); Carbon Dioxide 28.8 mmol/L (21.6-31.8); Globulin 1.9 g/dL (1.6-3.3); Potassium 4.5 mmol/L (3.5-5.5); Total Bilirubin 0.5 mg/dL (0.3-1.2); Total Protein 6.4 g/dL (6.2-8.2)
[2019-01-19 00:31] LABS: Vitamin D 25 Hydroxy 45.1 ng/mL (30.0-100.0)
[2019-01-19 00:41] LABS: Folate, Serum >24.0 ng/mL
[2019-01-19 08:35] VITALS: BP 103/71; PULSE 69; RESP 16; TEMP 97.7; BMI 25.9
== END ==
LOC: BARWHC3 13:55
PROVIDERS: ATTEND Surgery
DX: E66.01 Morbid (severe) obesity due to excess calories (principal)
CPT/HCPCS: 36415; 80053; 82306; 82607; 82746; 83540; 85027; 97803; 99211

== ENCOUNTER → 2020-03-30 | Outpatient (CLI) | payer BC ==
--- NOTE | 2020-03-31 12:04 | US ---
EXAMINATION TYPE: US carotid duplex BILAT DATE OF EXAM: 03/30/2020 COMPARISON: NONE CLINICAL HISTORY: R55 syncope. Near syncopal episode yesterday. EXAM MEASUREMENTS: RIGHT: Peak Systolic Velocity (PSV) cm/sec ----- Right CCA: 63.3 ----- Right ICA: 77.6 ----- Right ECA: 97.3 ICA/CCA ratio: 1.2 RIGHT: End Diastole cm/sec ----- Right CCA: 20.4 ----- Right ICA: 27.0 ----- Right ECA: 15.3 LEFT: Peak Systolic Velocity (PSV) cm/sec ----- Left CCA: 66.8 ----- Left ICA: 72.1 ----- Left ECA: 69.4 ICA/CCA ratio: 1.1 LEFT: End Diastole cm/sec ----- Left CCA: 27.6 ----- Left ICA: 24.1 ----- Left ECA: 10.1 VERTEBRALS (direction of flow): Right Vertebral: Antegrade Left Vertebral: Antegrade Rhythm: Normal Mild to moderate intimal wall changes are noted in bilateral carotid systems, but PSV is wnl bilatera lly. Incidental finding of a right thyroid nodule is noted. IMPRESSION: 1. Atheromatous plaquing without significant flow-limiting stenosis. 2. Subcentimeter nodule right lobe thyroid Criteria for Assigning % of Stenosis / Diameter reduction (Estimation based on the indirect measurements of the internal carotid artery velocities (ICA PSV). 1. Normal (no stenosis)=ICA PSV < 125 cm/s: ratio < 2.0: ICA EDV<40 cm/s. 2. Less than 50% stenosis=ICA PSV < 125 cm/s: ratio < 2.0: ICA EDV<40 cm/s. 3. 50 to 69% stenosis=ICA PSV of 125 to 230 cm/s: ration 2.0 ? 4.0: ICA EDV 40-100 cm/s. 4. Greater than 70% stenosis to near occlusion= ICA PSV > 230 cm/s: ratio > 4.0: ICA EDV > 100 cm/s. 5. Near occlusion= ICA PSV velocities may be low or undetectable: variable ratio and ICA EDV. 6. Total occlusion=unable to detect flow.
== END | disposition home or self-care (01) ==
LOC: RADUSWWP 16:15
PROVIDERS: ATTEND Family Medicine
DX: I70.8 Atherosclerosis of other arteries (principal)
CPT/HCPCS: 93880

== ENCOUNTER → 2020-04-04 | Outpatient (CLI) | payer BC ==
--- NOTE | 2020-04-04 16:00 | ECHOF ---
Referral Reason: MEASUREMENTS -------- HEIGHT: 182.9 cm WEIGHT: 83.9 kg BP: RVIDd: 3.0 cm (< 3.3) IVSd: 1.0 cm (0.6 - 1.1) LVIDd: 4.5 cm (3.9 - 5.3) LVPWd: 1.2 cm (0.6 - 1.1) IVSs: 1.7 cm LVIDs: 1.9 cm LVPWs: 1.7 cm Ao Diam: 3.3 cm (2.0 - 3.7) AV Cusp: 2.4 cm (1.5 - 2.6) LA Diam: 3.1 cm (2.7 - 3.8) MV EXCURSION: 17.354 mm (> 18.000) MV EF SLOPE: 135 mm/s (70 - 150) EPSS: 0.6 cm MV E Buck: 0.71 m/s MV DecT: 178 ms MV A Buck: 0.48 m/s MV E/A Ratio: 1.47 RAP: 5.00 mmHg RVSP: 17.61 mmHg TAPSE: 29.50 mm FINDINGS -------- Sinus rhythm. This was a technically good study. The left ventricular size is normal. There is mild concentric left ventricular hypertrophy. Overa ll left ventricular systolic function is normal with, an EF between 55 - 60 %. The right ventricle is normal in size. The left atrial size is normal. The right atrial size is normal. The aortic valve is trileaflet, and appears structurally normal. No aortic stenosis or regurgitation. The mitral valve is normal. Mild mitral regurgitation is present. The tricuspid valve appears structurally normal. Mild tricuspid regurgitation present. Right vent ricular systolic pressure is normal at < 35 mmHg. There is no pulmonic regurgitation present. The aortic root size is normal. Normal inferior vena cava with normal inspiratory collapse consistent with estimated right atrial pre ssure of 5 mmHg. There is no pericardial effusion. CONCLUSIONS -------- 1. There is mild concentric left ventricular hypertrophy. 2. Overall left ventricular systolic function is normal with, an EF between 55 - 60 %. 3. The left atrial size is normal. 4. The aortic valve is trileaflet, and appears structurally normal. No aortic stenosis or regurgitati on. 5. Mild mitral regurgitation is present. 6. Mild tricuspid regurgitation present. 7. There is no pulmonic regurgitation present. 8. There is no pericardial effusion. BLOCK SETTER GYPSUM: Faiza Gaitan RDCS
== END | disposition home or self-care (01) ==
LOC: RADECHMAIN 12:00
PROVIDERS: ATTEND Family Medicine
DX: I08.1 Rheumatic disorders of both mitral and tricuspid valves (principal)
CPT/HCPCS: 93306

== ENCOUNTER → 2020-04-05 | Outpatient (CLI) | payer BC ==
[2020-04-05 08:55] LABS: Basophils % (A) 0 %; Eosinophils # (A) 0.3 k/uL (0-0.7); Eosinophils % (A) 2 %; HCT 47.6 % (39.0-53.0); HGB 16.1 gm/dL (13.0-17.5); Lymphocytes # (A) 3.2 k/uL (1.0-4.8); Lymphocytes % (A) 28 %; MCHC 33.8 g/dL (31.0-37.0); MCV 97.5 fL (80.0-100.0); Mean Platelet Volume 6.4; Monocytes # (A) 0.7 k/uL (0-1.0); Monocytes % (A) 7 %; Neutrophils # (A) 6.7 k/uL (1.3-7.7); Neutrophils % (A) 60 %; Platelet Count 297 k/uL (150-450); RBC 4.89 m/uL (4.30-5.90); RDW 12.6 % (11.5-15.5); WBC 11.2 k/uL (3.8-10.6)
[2020-04-05 16:49] LABS: ALT 19 U/L (10-49); AST 20 U/L (14-35); African American GFR (CKD) 116.6 (60.0-200.0); Calcium 9.4 mg/dL (8.7-10.3); Carbon Dioxide 29.1 mmol/L (21.6-31.8); Chloride 104 mmol/L (96-109); Glucose 82 mg/dL (70-110); Non-African American GFR(CKD) 100.6 (60.0-200.0); Potassium 4.1 mmol/L (3.5-5.5); Sodium 139 mmol/L (135-145)
[2020-04-05 17:19] LABS: Folate, Serum >24.0 ng/mL
== END | disposition home or self-care (01) ==
LOC: LABWHC1 07:52
PROVIDERS: ATTEND Family Medicine
DX: R55 Syncope and collapse (principal)
CPT/HCPCS: 36415; 80048; 82306; 82607; 82746; 84443; 84450; 84460; 85025

== ENCOUNTER → 2020-04-10 | Outpatient (CLI) | payer BC ==
--- NOTE | 2020-04-10 12:26 | NM ---
EXAMINATION TYPE: NM stress cardiolite complete DATE OF EXAM: 04/10/2020 COMPARISON: Prior exam 10/02/2016 HISTORY: Syncope, previous abnormal exam TECHNIQUE: After the intravenous administration of 10.3 mCi Tc 99m Sestamibi - Rest images obtained 50 minutes post injection. The patient exercised using a ARABELLA protocol and 1 minute prior to peak exercise was injected with 25.5 mCi Tc 99m Sestamibi - Stress images obtained 10 minutes post injecti on. Patient achieved greater than 85% of predicted maximal heart rate. FINDINGS: Targeted heart rate was achieved during performance of the study. Review of stress and rest SPECT jeff ges demonstrates decreased uptake along the inferior lateral left ventricle towards apex similar to p rior exam on both stress and rest images however there is some decreased uptake at the level the card iac apex greater on stress than on rest images extending into the inferior wall. Gated analysis show s normal wall motion with an estimated left ventricular ejection fraction of 67 %. IMPRESSION: Findings are similar to prior exam with evidence of prior infarct and stress-induced left ventricular myocardial ischemia gaurav-infarct location. Consider echocardiographic correlation for elevated eject ion fraction A Yellow level critical message alert has been initiated for Tj Rice Jr, DO via the [employer] Critical Results System on 04/10/2020 12:23 PM. This message alert has been sent to Tj vazquez Jr, DO via the preferences provided by the clinician for the receipt of Radiology Critical Findin gs. Message ID [id number].
--- NOTE | 2020-04-10 15:17 | EST ---
EXERCISE STRESS AGE: 54 SEX: M HT: 70" WT: 185 lbs. PROTOCOL: Cardiolite Johnathan STAGE: 4 DURATION OF EXERCISE: 11.7 HEART RATE REST: 58 BLOOD PRESSURE REST: 132/62 MAXIMUM HEART RATE ACHIEVED: 158 MAXIMUM BLOOD PRESSURE: 210/52 85% MPHR: 140 100% MPHR: 165 METS: 11.7 INDICATIONS: Dizzy. CLINICAL INFORMATION: Baseline rhythm is sinus mechanism, rate 58, normal axis and intervals. Normal echocardiogram. Baseline blood pressure 132/62 mmHg. Patient exercised on Johnathan protocol for 10 minutes, reaching peak rate 158 beats per minute which is equal to 96% maximum predicted heart rate. Peak blood pressure 210/52. Test was terminated due to fatigue. There were no chest pain. Electrocardiograph monitoring revealed occasional PVCs. There was no evidence of diagnostic ischemic ST deviation. Cardiolite was injected at peak exercise. CONCLUSION: 1. Good exercise tolerance with occasional PVCs. 2. Normal electrocardiograph response to exercise. 3. Nuclear images will be reported separately. MMODL / IJN: [id number] /
== END ==
LOC: RADNMMAIN 08:27
PROVIDERS: ATTEND Family Medicine
DX: I25.2 Old myocardial infarction (principal); I49.3 Ventricular premature depolarization
CPT/HCPCS: 93017; 78452; A9500

== ENCOUNTER 2020-05-05 08:51 | Emergency (ER) | payer BC ==
[2020-05-05 08:56] VITALS: BP 112/66; PULSE 86; RESP 16
[2020-05-05 08:57] VITALS: TEMP 97.7
[2020-05-05] MEDS ORDERED: KETOROLAC 60 MG/2 ML VIAL IM STA (09:15)
[2020-05-05] MEDS ORDERED: HYDROmorphone 1 MG/ML 1 ML SYRINGE IM STA (09:15)
--- NOTE | 2020-05-05 09:24 | ED ---
General Adult HPI - General Chief complaint: Back Pain/Injury Stated complaint: back pain Time Seen by Provider: 05/05/20 09:04 Source: patient, RN notes reviewed Mode of arrival: ambulatory Limitations: no limitations - History of Present Illness Initial comments: Patient is a pleasant 54-year-old male presenting to the emergency Department with chronic back pain. Symptoms have been somewhat worse the past few days/weeks. Patient has had chronic back pain for over 15 years. Patient has had neurosurgery consultation previously. Patient states discomfort is similar to previous however is somewhat worse. Discomfort starts right lower back and does radiate down to the knee. No weakness. No incontinence or retention of bowel or bladder. No loss of sensation. - Related Data Home Medications Medication Instructions Recorded Confirmed Multivitamins, Thera [Multivitamin 1 tab PO DAILY 11/23/18 11/23/18 (formulary)] Previous Rx's Medication Instructions Recorded Gabapentin [Neurontin] 300 mg PO BID #6 cap 05/05/20 methylPREDNISolone Dose Pack 24 mg PO DAILY #1 tab 05/05/20 [Medrol Dose Pack] Allergies Allergy/AdvReac Type Severity Reaction Status Date / Time No Known Allergies Allergy Verified 05/05/20 08:52 Review of Systems ROS Statement: Those systems with pertinent positive or pertinent negative responses have been documented in the HPI. ROS Other: All systems not noted in ROS Statement are negative. Constitutional: Denies: fever Eyes: Denies: eye pain ENT: Denies: ear pain Respiratory: Denies: cough Cardiovascular: Denies: chest pain Endocrine: Denies: fatigue Gastrointestinal: Denies: abdominal pain Genitourinary: Denies: dysuria Musculoskeletal: Reports: as per HPI, back pain Skin: Denies: rash Neurological: Denies: weakness Past Medical History Past Medical History: Asthma, Chest Pain / Angina, GERD/Reflux, Osteoarthritis (OA), Prostate Disorder Additional Past Medical History / Comment(s): BPH. HAD INFECTION OF LEFT HIP POST OP WOUND (PICC LINE/ANTIBIOTICS) APPROXIMATELY 7 YRS AGO (2008-). History of Any Multi-Drug Resistant Organisms: None Reported Past Surgical History: Bariatric Surgery, Cholecystectomy, Heart Catheterization, Orthopedic Surgery Additional Past Surgical History / Comment(s): TOTAL LEFT HIP REPLACMENT. EGD, COLONOSCOPY. C. CATH 10/06/16, [place].sleeve gastrectomy 01-11-18 Past Anesthesia/Blood Transfusion Reactions: Family History of Problems w/ Anesthesia Additional Past Anesthesia/Blood Transfusion Reaction / Comment(s): FATHER HAD PROB X1; "stopped breathing" Past Psychological History: Anxiety Smoking Status: Never smoker Past Alcohol Use History: None Reported Past Drug Use History: None Reported - Past Family History Mother Family Medical History: No Reported History General Exam Limitations: no limitations General appearance: alert, in no apparent distress Head exam: Present: normocephalic Eye exam: Present: normal appearance Neck exam: Present: normal inspection Respiratory exam: Present: normal lung sounds bilaterally Cardiovascular Exam: Present: regular rate, normal rhythm GI/Abdominal exam: Present: soft. Absent: tenderness Extremities exam: Present: normal inspection Back exam: Present: normal inspection Neurological exam: Present: alert. Absent: motor sensory deficit Expanded Sensory exam: Lower Extremity Light Touch: Normal Motor strength exam: RLE: 5 Psychiatric exam: Present: normal affect, normal mood Skin exam: Present: normal color Course Vital Signs 05/05/20 08:52 Temperature 97.7 F Pulse Rate 86 Respiratory 16 Rate Blood Pressure 112/66 O2 Sat by Pulse 98 Oximetry Medical Decision Making - Medical Decision Making Patient receptive to prescription for steroid. also requests prescription for a couple of days of Neurontin until patient can follow-up with his doctor. Patient is also receptive to pain medication injection and discharge. Disposition Clinical Impression: Low back pain Disposition: HOME SELF-CARE Condition: Stable Instructions (If sedation given, give patient instructions): Acute Low Back Pain (ED), Back Pain (ED) Additional Instructions: Please follow-up with primary care physician in the beginning of the week. Also consider follow-up with back doctors, number provided for Dr. Solomon. Return for loss of control of bowel or bladder, weakness, loss of sensation, worsening symptoms or other concerns. Prescriptions: methylPREDNISolone Dose Pack [Medrol Dose Pack] 24 mg PO DAILY #1 tab Gabapentin [Neurontin] 300 mg PO BID #6 cap Is patient prescribed a controlled substance at d/c from ED?: Yes When asked, does pt state using other controlled substances?: No If prescribed controlled substance>3 days was MAPS reviewed?: Prescribed <3 Days If opioid is for acute pain is fill amount 7 days or less?: Yes If Rx opioid, was Start Talking consent form obtained?: Yes Referrals: Tj Rice Jr, DO [Primary Care Provider] - 1-2 days Cody Solomon DO [Doctor of Osteopathic Medicine] - 1-2 days Time of Disposition: 09:19
== END 2020-05-05 09:45 | disposition home or self-care (01) ==
LOC: EC 08:51
DX: G89.29 Other chronic pain (principal); M54.5 Low back pain; M19.90 Unspecified osteoarthritis, unspecified site; Z96.642 Presence of left artificial hip joint
CPT/HCPCS: 99283; 96372 ×2; J1885; J1170

== ENCOUNTER → 2020-06-15 | Outpatient (CLI) | payer BC ==
--- NOTE | 2020-06-15 17:51 | MR ---
EXAMINATION TYPE: MR lumbar spine wo con DATE OF EXAM: 06/15/2020 COMPARISON: None HISTORY: Radiculopathy, lumbar region, low back pain CONTRAST: 0 mL intravenous Gadavist. TECHNIQUE: Multiplanar, multisequence images of the lumbar spine were acquired. FINDINGS: L5-S1: Mild disc bulge is present. Facet hypertrophy is present greater on the left. Mild anterior th ecal sac compression is present. Mild left posterior lateral thecal sac contact is present. No spinal canal stenosis is present. Neural foramen are patent. L4-L5: There is loss of disc height is level. Facet hypertrophy has posterior lateral thecal sac comp ression greater on the right. Bilateral foraminal stenosis is present more severe on the left than on the right. Some posterior lateral exiting nerve root contact may be present. Correlate with radicula r symptoms for L5 radiculopathy. Central disc bulging is present with moderate anterior thecal sac co mpression. Spinal canal stenosis is present in the lateral direction. L3-L4: Facet hypertrophy is present with posterior lateral thecal sac compression. There is loss of d isc height through this level. No spinal canal stenosis present. Some canal narrowing is present. The re are congenitally short pedicles. Severe right foraminal stenosis present. Correlate with right L4 radicular symptoms. L2-L3: Disc bulge is present with anterior thecal sac contact. Facet hypertrophy has right posterior lateral thecal sac compression. Severe right foraminal stenosis is present. Left foramen is patent. N o AP spinal canal stenosis is present L1-L2: Moderately large central disc herniation is moderate anterior thecal sac compression centrally . No AP spinal canal stenosis present. Facet hypertrophy is present. Neural foramen are patent. T12-L1: Mild disc bulge is present. This slightly greater in the right paracentral region. No AP spin al canal stenosis or neural foraminal stenosis is present IMPRESSION: 1. Large central disc herniation L1-2 with moderate anterior thecal sac compression. 2. Multilevel foraminal stenosis. Correlate for right L5, right L4 radicular symptoms. 3. Facet hypertrophy and additional degenerative disc changes discussed above. 4. Spinal canal narrowing predominantly in the lateral direction due to facet hypertrophy disc bulgin g and congenitally short pedicles at L4-5
== END | disposition home or self-care (01) ==
LOC: RADMRIMAIN 12:18
PROVIDERS: ATTEND Family Medicine
DX: M48.061 Spinal stenosis, lumbar region without neurogenic claudication (principal); M51.16 Intervertebral disc disorders with radiculopathy, lumbar region; M47.26 Other spondylosis with radiculopathy, lumbar region
CPT/HCPCS: 72148

== ENCOUNTER → 2020-08-06 | Outpatient (CLI) | payer BC ==
[2020-08-06 11:10] VITALS: BP 144/80; PULSE 70; RESP 16
--- NOTE | 2020-08-07 11:56 | P.PAINCN ---
History of Present Illness - Reason for Consult Consult date: 08/06/20 - History of Present Illness This is 55 years old male, started having severe low back pain , April 2020, the pain is constant and increases with any activity localized in the low back area radiated to the right lower extremity, low back hip groin and right knee and to the right toes, the pain is associated with numbness and tingling sensation, is constant and aggravated with any movement or any activity, was evaluated by multiple spine surgeries in the Dr. Loyd, Dr. Solomon, and Dr. Velez, and all of them recommended surgical interventions, the intensity of the pain interfering with the quality of life, patient denies any fever or night sweats which he denies any change in the bowel movement or urination, Past Medical History Past Medical History: Asthma, Prostate Disorder, Rheumatoid Arthritis (RA) Additional Past Medical History / Comment(s): BPH. ,HX POST OP INFECTION WITH PICC LINE & ANTIBIOTICS (2009)., STATES ASTHMA RESOLVED WITH 120# WT LOSS. History of Any Multi-Drug Resistant Organisms: None Reported Past Surgical History: Bariatric Surgery, Cholecystectomy, Heart Catheterization, Orthopedic Surgery Additional Past Surgical History / Comment(s): TOTAL LEFT HIP REPLACMENT (2009- POST OP INFECTION WITH PICC LINE FOR ANTIBIOTICS) EGD, COLONOSCOPY. CARDIAC CATH 10/06/16,sleeve gastrectomy 01-11-18 Past Anesthesia/Blood Transfusion Reactions: No Reported Reaction, Family History of Problems w/ Anesthesia Additional Past Anesthesia/Blood Transfusion Reaction / Comm: FATHER HAD PROB X1; "stopped breathing" Smoking Status: Former smoker - Past Family History Mother Family Medical History: No Reported History Medications and Allergies Home Medications Medication Instructions Recorded Confirmed Type Multivit-Min/Folic/Vit K/Lycop 1 each PO DAILY 08/02/20 08/06/20 History [Men's Multivitamin Tablet] methocarbamoL [Robaxin] 1,500 mg PO TID PRN 08/02/20 08/06/20 History Allergies Allergy/AdvReac Type Severity Reaction Status Date / Time No Known Allergies Allergy Verified 08/06/20 11:02 Physical Exam Physical Examinations : -Constitutiona : Cooperative , not in acute distress . -HEENT : nech : supple , no Lymphadenopathy , normal thyroid size . : eyes : no ptosis , no icterus, no photophobia . - neurologic : Cranial nerve II to XII intact , no focal neurological deffecit . -psychatric : alert , oriented X 3 , appropriate affect , intact judgment and insight . -Lymphatic : no Lymphadenopathy . - musculoskeltal : Lumber spine moter stegnth lower extremities ,thigh and legs 4/5 Right side , 5/5 Left side deep tendon reflexes : normal Knee Jerk , normal ankle Jerk lumber facet Loading Test =positive Right , positive Left Range of motion of the lumbar spine Flexion 30 degrees, extension 10 degrees strait leg raising test = positive at 30 degree Fabere test= positive Right , and positive LT . Sever tenderness over the Sacroiliac joint on the Right . Results Comments: MRI of the lumbar spine done at the current [facility]= L1-2 disc herniation at L2-3 facet degeneration L3 4 facet degeneration, L4 5 facet degeneration and foraminal stenosis L5-S1 bulging disc and facet degeneration Assessment and Plan Plan: Assessment and plan=1-lumbar radiculopathy at right-sided L3 4 and L4-L5 dermatomal distribution. 2-lumbar spondylosis with lumbar facet arthropathy without myelopathy. 3-lumbar degenerative disc disease. Patient could benefit from a right-sided transforaminal epidural steroid injection at L3 4 and L4-L5, procedure risk and benefits and alternatives discussed with the patient he agreed with proceeding. If patient continued to have pain after transforaminal epidural steroid injection , he could benefit from diagnostic medial branch block and possible RFA of the medial branch lumbar area Time with Patient: Greater than 30 PQRS Measure Charge Sheet Measure #130: Documentation of Current Meds in Medical Chart: Patient's medications documented in chart Measure #226: Tobacco Use: Screen & Cessation Intervention: Pt not a tobacco user Measure #111: Pneumonia Vaccination: Pneumococcal vaccine administered or previously received Measure #47: Advance Care Plan: Advance care planning discussed & documented, pt chose/unable to give Measure #412: Opioid Treatment Agreement: No documentation of signed opioid treatment agreement Measure #408: Opioid Therapy Follow-up Evaluation: Patient had NO f/u eval minimum every 3 months during opioid therapy Measure #317: Preventitive Care & Scrn High Bld Press & F/U: Pre-hypertensive or hypertensive BP documented, pt will f/u with PCP Measure #128: Body Mass Index (BMI) Screening & Follow-up: BMI documented ABOVE normal parameters - f/u documented Measure #131: Pain Assessment & Follow-up: Pain positive & plan documented, Follow-up scheduled Measure #431: Unhealthy Alcohol Use Preventative Care & Scrn: Patient identified as unhealthy alcohol user; counseling given PQRS Narrative: Smoking Status Former smoker Blood Pressure 144/80 Pain Intensity [Lower Back] 2 Scale Used Numeric (1 - 10) Hx Alcohol Use (MH) Yes: RARE Home Medications: Ambulatory Orders Multivit-Min/Folic/Vit K/Lycop [Men's Multivitamin Tablet] 1 each PO DAILY 08/02/20 methocarbamoL [Robaxin] 1,500 mg PO TID PRN 08/02/20
== END | disposition home or self-care (01) ==
LOC: PNWHC3 10:15
PROVIDERS: ATTEND Specialist
DX: M51.16 Intervertebral disc disorders with radiculopathy, lumbar region (principal); M47.26 Other spondylosis with radiculopathy, lumbar region; Z87.891 Personal history of nicotine dependence; Z79.899 Other long term (current) drug therapy; Z79.891 Long term (current) use of opiate analgesic; M06.9 Rheumatoid arthritis, unspecified
CPT/HCPCS: 99211

== ENCOUNTER 2020-08-30 08:10 | Day surgery (SDC) | payer BC ==
[2020-08-28 12:06] VITALS: BMI 26.5
[2020-08-30 08:40] VITALS: RESP 16; TEMP 97.2
[2020-08-30] MEDS ORDERED: LACTATED RINGERS 1,000 ML IV ONE (08:54)
[2020-08-30] MEDS ORDERED: IOPAMIDOL M200 10 ML VIAL ONE (09:08)
[2020-08-30] MEDS ORDERED: DEXAMETHASONE SOD PHOSPHATE 10 MG/ML 1 ML VIAL ONE (09:08)
[2020-08-30] MEDS ORDERED: fentaNYL (PF) 50 MCG/ML 2 ML AMP ONE (09:08)
[2020-08-30] MEDS ORDERED: MIDAZOLAM 2 MG/2 ML VIAL ONE (09:08)
--- NOTE | 2020-08-30 09:31 | P.PCN ---
Date of Procedure: 08/30/20 Description of Procedure: PREOPERATIVE DIAGNOSIS: Lumbar radiculopathy POSTOPERATIVE DIAGNOSIS: Lumbar radiculopathy Attending physician: Kwaku Rios M.D. PROCEDURE 1. Transforaminal epidural steroid injection under fluoroscopic guidance Right L3-L4, L4-L5 2. Lumbar epidurogram ANESTHESIA: Local with 1% lidocaine 3 ml ; IV sedation with Versed and fentanyl , sedation time 18 min PROCEDURE INDICATION: The patient with low back pain and radiculopathy symptoms unresponsive to conservative treatment. Fluoroscopy was used for the procedure and fluoroscopic images were saved to the radiology portion of patient's chart. PROCEDURE DESCRIPTION / TECHNIQUE: The patient was seen and identified in the preoperative area. Risks, benefits, complications, and alternatives were discussed with the patient. The patient agreed to proceed with the procedure and signed the consent. IV was started, and vital signs were stable. Patient was taken to the OR and time out was completed. The patient was placed in the prone position on procedure table and a pillow was placed under the abdomen to reduce lumbar lordosis. The lumbosacral area was prepped and draped in the usual sterile fashion. Vital signs were closely monitored during the procedure. Conscious sedation was used. Using oblique fluoroscopy, the chin of the ``Anthony dog and the skin and deeper tissues just below was localized with 1% lidocaine. Subsequently, a 22- gauge 3.5-inch spinal needle was advanced under a tunneled view fluoroscopic guidance just underneath the chin of the ``Anthony dog . Under lateral fluoroscopy, the needle was then advanced to the posterior border of the foramen. After negative aspiration of CSF and blood and with no paresthesias, 1 mL of Isovue-200 contrast dye was injected under live fluoroscopy and there was no evidence of intravascular injection. The injectate solution consisting of 5 mg of dexamethasone with 1.5 mL of 1% lidocaine was then delivered. The needle was withdrawn intact. The procedure was then completed at the level below. At the end of the procedure, skin was cleansed, and bandages were applied. RECCOMEND USING 5 " needles next time COMPLICATIONS: None COMMENTS: DISPOSITION / PLANS: The patient was placed in a supine position and transferred to the recovery area in a stable condition for observation. There was no evidence of lower extremity motor or sensory deficit after the procedure. Patient was discharged from the recovery room after meeting discharge criteria. Home discharge instructions were given to the patient by the staff. The patient will repeat procedure in 2-4 weeks.
[2020-08-30] MEDS ORDERED: IV FLUID CONTINUATION 600 ML IV ONE (09:35)
--- NOTE | 2020-08-30 09:48 | FL ---
Fluoroscopy HISTORY: Pain 20 seconds fluoroscopy time supplied to the referring clinician. 4 intraoperative C-arm images docum ent the procedure. See dictated report from anesthesia.
[2020-08-30 09:57] VITALS: BP 110/64; PULSE 67
== END 2020-08-30 10:09 | disposition home or self-care (01) ==
LOC: ORPAIN 08:10
PROVIDERS: ATTEND Anesthesiology
DX: M54.16 Radiculopathy, lumbar region (principal)
CPT/HCPCS: 64483; 64484; J2250; J1100; J3010; Q9966; 99152

== ENCOUNTER 2020-09-18 07:38 | Day surgery (SDC) | payer BC ==
[2020-09-17 12:04] VITALS: BMI 26.5
[2020-09-18 07:50] VITALS: TEMP 97.5
[2020-09-18] MEDS ORDERED: LACTATED RINGERS 1,000 ML IV ONE (07:50)
[2020-09-18] MEDS ORDERED: LIDOCAINE 1% (10MG/ML) FOR IV START INTRADERMA ONE (07:53)
--- NOTE | 2020-09-18 08:19 | P.PCN ---
Date of Procedure: 09/18/20 Description of Procedure: PREOPERATIVE DIAGNOSIS: Lumbar radiculopathy POSTOPERATIVE DIAGNOSIS: Lumbar radiculopathy PROCEDURE 1. Transforaminal epidural steroid injection under fluoroscopic guidance right L3 4, L4 5 2. Lumbar epidurogram IMAGING Fluoroscopy was used, images where saved to the medical record ANESTHESIA: Local with 1% lidocaine 5 ml ; 2 mg of Versed and 50 g of fentanyl PROCEDURE DESCRIPTION / TECHNIQUE: The patient was seen and identified in the preoperative area. Risks, benefits, complications, and alternatives were discussed with the patient. The patient agreed to proceed with the procedure and signed the consent, vital signs were stable prior to the procedure. Patient was taken to the OR and time out was completed. The patient was placed in the prone position on procedure table and a pillow was placed under the abdomen to reduce lumbar lordosis. The lumbosacral area was prepped and draped in the usual sterile fashion. Vital signs were closely monitored during the procedure. Conscious sedation was used. Using oblique fluoroscopy, the chin of the "Anthony dog" at the pedicle and the skin and deeper tissues just below was localized with 1% lidocaine. Subsequently, a 22-gauge 3.5-inch spinal needle was advanced under a tunneled view fluoroscopic guidance just underneath the chin of the "Anthony dog". Under lateral fluoroscopy, the needle was then advanced to the posterior border interforaminal space. After negative aspiration of CSF and blood and with no paresthesias, 1 mL of Omnipaque-240 contrast dye was injected excellent e pidurogram. Subsequently, a solution totalling 2ml of dexamethasone and PFNS was injected after negative aspiration (total of 10mg of dexamethasone was used). The needle was removed intact. COMPLICATIONS: None DISPOSITION: The patient was placed in a supine position and transferred to the recovery area in a stable condition for observation. There was no evidence of lower extremity motor or sensory deficit after the procedure. Patient was discharged from the recovery room after meeting discharge criteria. Home discharge instructions were given to the patient by the staff. The patient was reexamined prior to discharge. Follow up as directed.
[2020-09-18] MEDS ORDERED: SODIUM CHLORIDE 0.9% (PF) 10 ML VIAL ONE (08:25)
[2020-09-18] MEDS ORDERED: fentaNYL (PF) 50 MCG/ML 2 ML AMP ONE (08:25)
[2020-09-18] MEDS ORDERED: DEXAMETHASONE SOD PHOSPHATE 10 MG/ML 1 ML VIAL ONE (08:25)
[2020-09-18] MEDS ORDERED: MIDAZOLAM 2 MG/2 ML VIAL ONE (08:25)
[2020-09-18] MEDS ORDERED: IOPAMIDOL M200 10 ML VIAL ONE (08:25)
[2020-09-18] MEDS ORDERED: IV FLUID CONTINUATION 1,000 ML IV ONE (08:42)
[2020-09-18 08:45] VITALS: RESP 16
[2020-09-18 09:10] VITALS: BP 108/70; PULSE 69
--- NOTE | 2020-09-18 10:03 | FL ---
EXAMINATION TYPE: FL guided pain mgmt statistic DATE OF EXAM: 09/18/2020 HISTORY: Fluoroscopy time 7 seconds of fluoroscopy provided. IMPRESSION: 1. Fluoroscopy time.
== END 2020-09-18 09:22 | disposition home or self-care (01) ==
LOC: ORPAIN 07:38
PROVIDERS: ATTEND Hospitalist
DX: M54.16 Radiculopathy, lumbar region (principal)
CPT/HCPCS: 64483; 64484

== ENCOUNTER → 2023-08-31 | Outpatient (CLI) | payer OTHER ==
[2023-08-31 09:41] LABS: INR 0.9 (<1.2); Partial Thromboplastin Time 24.9 sec (22.0-30.0)
--- NOTE | 2023-08-31 09:47 | XR ---
EXAMINATION TYPE: XR chest 2V DATE OF EXAM: 08/31/2023 COMPARISON: 10/02/2016 TECHNIQUE: PA and lateral views submitted. HISTORY: Preop FINDINGS: The lungs are clear and there is no pneumothorax, pleural effusion, or focal pneumonia. Heart size normal and no overt failure. Osseous structures demonstrate hypertrophic and degenerative changes of the spine. Emphysematous changes. IMPRESSION: 1. No acute process.
[2023-08-31 15:51] LABS: ALT 27 U/L (10-49); AST 19 U/L (14-35); Albumin 4.3 g/dL (3.8-4.9); Albumin/Globulin Ratio 1.72 Ratio (1.60-3.17); Alkaline Phosphatase 84 U/L (41-126); Blood Urea Nitrogen 13.3 mg/dL (9.0-27.0); Calcium 9.3 mg/dL (8.7-10.3); Carbon Dioxide 24.6 mmol/L (21.6-31.8); Chloride 104 mmol/L (96-109); Globulin 2.5 g/dL (1.6-3.3); Glucose 86 mg/dL (70-110); Potassium 4.6 mmol/L (3.5-5.5); Sodium 140 mmol/L (135-145); Total Bilirubin 0.2 mg/dL (0.3-1.2); Total Protein 6.8 g/dL (6.2-8.2)
[2023-08-31 16:15] LABS: Basophils # (A) 0.08 X 10*3/uL (0.00-0.10); Eosinophils % (A) 2.5 %; HCT 44.4 % (39.6-50.0); HGB 14.4 g/dL (13.0-17.0); Lymphocytes # (A) 2.37 X 10*3/uL (0.90-5.00); Lymphocytes % (A) 29.7 %; MCH 30.4 pg (27.0-32.0); MCHC 32.4 g/dL (32.0-37.0); MCV 93.7 FL (80.0-97.0); Mean Platelet Volume 9.2 FL (9.5-12.2); Monocytes # (A) 0.82 X 10*3/uL (0.20-1.00); Monocytes % (A) 10.3 %; NRBC Per 100 WBC 0 X 10*3/uL (0.00-0.01); Neutrophils # (A) 4.48 X 10*3/uL (1.80-7.70); Platelet Count 314 X 10*3/uL (140-440); RBC 4.74 X 10*6/uL (4.40-5.60); RDW 13.2 % (11.5-14.5); WBC 7.99 X 10*3/uL (4.50-10.00)
[2023-08-31 16:44] LABS: Appearance,Urine Clear (Clear); Bilirubin,Urine Negative (Negative); Blood,Urine Negative (Negative); Color,Urine Yellow (Yellow); Ketones,Urine Negative (Negative); Nitrite,Urine Negative (Negative); PH, Urine 7.5; Specific Gravity,Urine 1.009 (1.001-1.030); Urobilinogen,Urine 0.2 E.U./DL
== END | disposition home or self-care (01) ==
LOC: LABPAT 08:00
PROVIDERS: ATTEND Orthopaedic Surgery Orthopaedic Surgery of the Spine
DX: Z01.818 Encounter for other preprocedural examination (principal); M41.80 Other forms of scoliosis, site unspecified; M48.061 Spinal stenosis, lumbar region without neurogenic claudication
CPT/HCPCS: 71046; 80053; 81003; 85025; 85610; 85730; 86850; 86900; 86901; 87070; 93005

== ENCOUNTER 2023-09-09 05:38 | Observation (INO) | payer OTHER ==
[2023-09-03 14:38] VITALS: BMI 31.8
[~2023-09-09 05:38] MED LIST changes: -DEXAMETHASONE SOD PHOSPHATE 10 MG/ML 1 ML VIAL IV ONE; +DEXAMETHASONE SOD PHOSPHATE 4 MG/ML 1 ML VIAL IV ONE; -ENOXAPARIN 30 MG/0.3 ML SYRINGE SQ ONE; -LIDOCAINE 1% 20 ML VIAL (10MG/ML) FOR IV START INTRADERMA PRN; -MORPHINE SULFATE 2 MG/ML SYRINGE IV PRN; -SCOPOLAMINE 1.5MG/72HR PATCH TRANSDERM ONE; +ceFAZolin 1,000 MG in SODIUM CHLORIDE 0.9% IRRIGATIO 1,000 ML IRRIGATION PRN; -ceFAZolin IN SWFI 2 GM/20 ML SYRINGE IVP ONE
[2023-09-09] MEDS: LACTATED RINGERS 1,000 ML IV SCH ×2 (06:35→06:45)
[2023-09-09] MEDS: LIDOCAINE 1% (10MG/ML) FOR IV START INTRADERMA PRN ×2 (06:35→06:45)
[2023-09-09] MEDS ORDERED: MIDAZOLAM 2 MG/2 ML VIAL IV PRN (07:00)
[2023-09-09] MEDS ORDERED: PHENYLEPHRINE-0.9% NACL SYG 1,000 MCG/10 ML SYRINGE ONE (07:25)
[2023-09-09] MEDS ORDERED: fentaNYL (PF) 50 MCG/ML 2 ML AMP ONE (07:25)
[2023-09-09] MEDS ORDERED: HYDROmorphone (PF) 1 MG/ML ONE (07:25)
[2023-09-09] MEDS ORDERED: ONDANSETRON 4 MG/2 ML VIAL ONE (07:25)
[2023-09-09] MEDS ORDERED: ROCURONIUM 10 MG/ML (5 ML VIAL) IV ONE (07:25)
[2023-09-09] MEDS ORDERED: SUCCINYLCHOLINE CHLORIDE 200 MG/10 ML VIAL IV ONE (07:25)
[2023-09-09] MEDS ORDERED: NEOSTIGMINE 1 MG/ML 10 ML VIAL ONE (07:25)
[2023-09-09] MEDS ORDERED: LIDOCAINE 1% INJ 10MG/ML (20 ML MDV) ONE (07:25)
[2023-09-09] MEDS ORDERED: KETAMINE HCL IN 0.9 % NACL 50 MG/5 ML SYRINGE ONE (07:25)
[2023-09-09] MEDS ORDERED: MIDAZOLAM 2 MG/2 ML VIAL ONE (07:25)
[2023-09-09] MEDS ORDERED: TRANEXAMIC 1,000 MG/100ML-NACL PREMIX BAG ONE (07:25)
[2023-09-09] MEDS ORDERED: GLYCOPYRROLATE 0.2 MG/ML 2 ML VIAL ONE (07:25)
[2023-09-09] MEDS ORDERED: PROPOFOL 10 MG/ML 20 ML VIAL IV ONE (07:25)
[2023-09-09] MEDS ORDERED: GELATIN SPONGE,ABSORB (LARGE) 1 EACH SPONGE TOPICAL ONE (07:58)
[2023-09-09] MEDS ORDERED: BUPIVACAINE (PF) 0.5% 30 ML VIAL SQ ONE ×2 (07:58)
[2023-09-09] MEDS ORDERED: LIDOCAINE 2%-EPI 1:100,000 20 ML VIAL SQ ONE ×2 (07:58)
[2023-09-09] MEDS ORDERED: THROMBIN (BOVINE) 5,000 UNIT VIAL TOPICAL ONE (07:58)
[2023-09-09] MEDS ORDERED: LACTATED RINGERS 1,000 ML IV ONE ×2 (09:50→13:34)
[2023-09-09] MEDS ORDERED: ONDANSETRON 4 MG/2 ML VIAL IVP PRN (13:30)
[2023-09-09] MEDS ORDERED: BENZOCAINE/MENTHOL LOZENG 1 EACH LOZENGE MUCOUS MEM PRN (13:30)
[2023-09-09] MEDS ORDERED: traMADol 50 MG TAB PO PRN (13:30)
--- NOTE | 2023-09-09 13:40 | P.OP ---
Date of Procedure: 09/09/23 Preoperative Diagnosis: Scoliosis, spinal stenosis, recurrent stenosis with history of prior laminectomy L3 4, disc herniation L2-3 L3 4 L4 5, lower extremity radiculopathy, facet arthrosis, low back pain, neurogenic claudication Postoperative Diagnosis: Same Anesthesia: GETA Pathology: none sent Condition: stable Disposition: PACU Description of Procedure: DESCRIPTION OF PROCEDURE(S): BRIEF OPERATIVE NOTE Preoperative Diagnosis: Scoliosis, spinal stenosis, recurrent stenosis with history of prior laminectomy L3 4, disc herniation L2-3 L3 4 L4 5, lower extremity radiculopathy, facet arthrosis, low back pain, neurogenic claudication Postoperative Diagnosis: Same Procedure: Revision laminectomy decompression L3 4 Laminectomy and decompression L2-3 and L4 [address] navigation aided Minimally invasive Posterior lateral decompression and facet fusion L2-3 L3 4 L4 5 Minimally invasive Transforaminal lumbar interbody fusion for a 360 fusion L3 4 L4 5 Discectomy for decompression L3 4 L4 5 Placement of interbody graft L3 4 L4 5 Use of computer navigation for fusion L2 through L5 Local autogenous bone grafting Aspiration of bone marrow from the vertebral body pedicle via L2 Use of bone graft extenders Surgeon: Dr. Solomon Media Marketing Coordinator: Julius MORROW who is present throughout the entire the case persistence during positioning, dissection, exposure, visualization, and all crucial elements of the case as well as closure. Anesthesia: General anesthesia per Dr. Zambrano Estimated blood loss: Approximately 300 mL with 125 given back through Cell [employer] Complications: None apparent Components implanted: K2M minimally invasive Burdett pedicle screw system withscrews measuring 6.5 mm in diameter to rods one Thicket interbody cage with 10 mL of osteo amp bio4 bone graft substitute and 30 mL of the BX bone fibers to supplement the local autogenous bone graft and bone marrow aspirate Disposition: To recovery room in good stable condition. OPERATIVE INDICATIONS The patient has had severe issues at their lower extremity in her lower back over the past several years with significant worsening over the past several months. He isn't having further difficulty despite aggressive conservative care Over the past few months the patient had pain at their back and their lower extremities. The patient is having severe radicular symptoms at their lower extremity with weakness. The patient is having significant pain in their back. They are unable to obtain any comfort. We did aggressive conservative treatment with medications therapy and interventional pain management however thery were not having any relief. The patient also showed evidence of a degenerative scoliosis with complete disc height loss and history of laminectomy L3 4 with progressive breakdown recurrent stenosis he had significant stenosis at L2-3 and L5 4 5 as well. All of these correlated well with his low back and lower extremity symptoms. He had near complete disc height loss at each level. The patient has been through conservative treatment. We discussed various treatment options including surgery, and the patient wishes to proceed with surgery We discussed the risk, patient's alternatives and benefits of surgery including but not limited to, risk of bleeding risk of infection, risk of need for further surgery, risk of decreased, loss of motion, muscle function, malunion nonunion, hardware failure, nerve damage, paralysis, heart attack, blindness and . They understood issues with the current pandemic and the possibility of exposure. OPERATIVE SUMMARY After discussing all the risks, patient alternatives and benefits at length, the patient elected to proceed with surgical intervention, signed informed consent, and presented for their procedure. The patient was seen and examined in the preoperative holding area and the surgical site was marked. The patient was given antibiotics and brought to the operating room. The patient was sedated and intubated by anesthesia in standard fashion. The patient was positioned on to the operating room table in a prone position on the appropriate frame which was well-padded and well molded. We were careful to pad any bony prominences and pressure points. We were careful to maintain the patient's cervical spine and good neutral alignment and position throughout. The patient was prepped and draped in a normal standard fashion. An appropriate timeout and keystone protocol performed. We were able to proceed with the surgery. The local wound area was infiltrated with local anesthetic. Over the right iliac crest I was able to make small stab incisions and establish a guidepin screw fixation to the iliac crest 2. I was able place the computer referencing device over the guidepins to establish an appropriate reference point for the Ziem CT navigation. We then were able to place patient in an appropriate drape and do a navigation spin for visualization and 3-D reconstruction of the lumbar spine. I was able utilize C-arm guidance and navigation to establish appropriate position over the pedicles bilaterally at the appropriate levels from L2 to L5 . With the appropriate levels confirmed was able to make small incisions over the appropriate pedicle sites bilaterally. Utilizing the computer navigation device I was able to establish bony landmarks at the right iliac crest for a bony reference point for the navigation device. I was able to establish a Jamshidi needle over the lateral aspect of the pedicle and advanced the trocar into the pedicle being careful not to breech superiorly inferiorly medially or laterally using computer navigation device. Position was confirmed regularly with AP and lateral images on C-arm and with the computer navigation device at the appropriate levels bilaterally. I was able to establish the trocar into the pedicle appropriately into the posterior aspect of the vertebral body bilaterally at the appropriate levels at L2 L3 L4 and L5. This was done at each of the pedicle positions and each of the vertebrae. At the superior vertebrae of L2 I was able to take approximately 25 mL of bone aspiration for use later in the case to supplement the allograft and autograft bone. I was able place the guidewire into the trocar and into the vertebral body appropriately under C-arm guidance. Dissection was taken down over the wire to the appropriate starting position for the screw placed. The appropriate length screw was chosen, threaded over the guidewire and screwed appropriately into the pedicle and vertebral body under C-arm guidance in excellent alignment and position with good bony purchase. This is done at each of the screw sites at the appropriate levels at L2-L3 L4 and L5. We findings with no stimulation at least at 17 mA. We revised and reviewed the imaging with C-arm and with a repeat the spin with CT guidance to show good alignment good position and all of the screw sites without any impingement into the neural foramen or canal. With the screws intact I extended the incision to connect the screw hole sites on the most symptomatic side on the left. I dissected down to establish access over the pars and lamina to the base of the spinous process. I was able to expose the facet joint. The capsule the facet was taken down and showed some facet arthrosis at the joint. I was able to use a combination of curettes and Kerrison rongeurs and a high-speed drill to take down the facet joint and do a facetectomy. I was able get excellent foraminal decompression and central decompression with undermining across midline to perform a laminectomy centrally and contralaterally. As able get good central decompression. The ligamentum flavum was taken down to further decompress centrally and at bilateral neural foramen. I was able to expose the disc space and visualize the traversing nerve root. The disc was nearly completely loss of height. It is very difficult to get into the disc space but I was able to establish access with a discectomy. The discectomy provided further decompression beyond that of disc preparation. Note was made of some disc protrusion and disc herniation that was abutting the traversing nerve root at the level causing further compression of the nerve root. I was able to establish a annulotomy at the appropriate level protecting soft tissue and neural structures. Note was made of some disc desiccation at t he disc. I performed a complete discectomy with accommodation of curettes and rasps and scrapers. I was able get good endplate preparation at the disc space. I sized for the appropriate size interbody spacer protecting the soft tissue and neural structures. The wound was copiously irrigated and suctioned dry. There is no evidence of any dural tear or leak. I performed wide decompression at L2-3 as well. At L2-3 and L3 4 there is some scar tissue formation which had retained down. The head of the greater care for the decompression at these levels. At L2-3 I had to be cautious in terms of May position of the canal and nerve root and I chose not to perform the interbody procedure at this level. I was able to pack the disc space with local autogenous bone graft as well as a small amount of bone graft which was also placed into the interbody cage itself. Protecting the soft tissue structures and neural structures I was able place the interbody cage in good alignment and good position with good fit and fill at the interbody space. Position was confirmed with C-arm guidance. Good hemostasis maintained. There is no evidence of any dural tear or leak. The wound was irrigated and suctioned dry. With the hardware intact, intraoperative C-arm imaging was again taken which showed good alignment and position of the hardware at the appropriate levels at L2 L3 L4 and L5. We were then able to measure, contour and place the rods and appropriate hardware bilaterally. I was able to get good realignment of the scoliosis to good stable position. I was able to place capcrews, tighten them down, and torque them with the torque screwdriver appropriately. With this intact I was able to place the local autogenous bone graft with additional bone graft enhancer as necessary into the posterior lateral gutters over the decorticated transverse processes and facet joints on the contralateral side. The remainder of the bone graft was placed over the facet joint on the contralateral side after taking down the facet joint capsule. With the bone graft intact, a stable construct, and good decompression at the appropriate levels, we were able to proceed with closure. Good hemostasis was maintained. There is no evidence of dural tear or leak. The fascia was closed for a watertight closure. he subcuticular tissue was closed with absorbable suture. The wound was cleaned and dried and dressed with the appropriate dressing. The drapes were broken down. The patient was gently rolled back onto their hospital bed being careful to maintain their cervical spine and good neutral alignment and position. They were woken up by anesthesia, extubated, and brought to the recovery room in good stable condition. The patient will be admitted to the hospital for appropriate postoperative care, medical management and monitoring. We will continue to follow them closely about the postoperative course.
--- NOTE | 2023-09-09 13:43 | FL ---
EXAMINATION TYPE: FL guidance operating room DATE OF EXAM: 09/09/2023 HISTORY: Fluoroscopy time Total dose area product (DAP) in uGy*m?, mGy*cm? (or similar): 140.96 IMPRESSION: 1. Fluoroscopy time.
[2023-09-09] MEDS: HYDROmorphone 0.5 MG/0.5 ML SYRINGE IVP PRN ×2 (14:28→14:49)
[2023-09-09] MEDS: HYDROmorphone 1 MG/ML 1 ML SYRINGE IVP PRN ×2 (17:04→21:07)
[2023-09-09] MEDS: TRANEXAMIC 1,000 MG/100ML-NACL 1,000 MG in SALINE 1 100ML.BAG IVPB SCH ×2 (17:33→18:22)
[2023-09-09] MEDS: SODIUM CHLORIDE 0.9% 1,000 ML IV SCH ×2 (17:34→23:47)
[2023-09-09] MEDS: TAMSULOSIN 0.4 MG CAP.ER.24H PO SCH (21:07)
[2023-09-10] MEDS: HYDROmorphone 0.5 MG/0.5 ML SYRINGE IVP PRN (00:57)
[2023-09-10] MEDS: CYCLOBENZAPRINE 10 MG TAB PO PRN (03:17)
[2023-09-10] MEDS: HYDROmorphone 1 MG/ML 1 ML SYRINGE IVP PRN ×5 (04:27→20:49)
[2023-09-10] MEDS: LACTATED RINGERS 1,000 ML IV SCH (08:38)
[2023-09-10] MEDS: SODIUM CHLORIDE 0.9% 1,000 ML IV SCH ×3 (08:47→12:50)
[2023-09-10] MEDS: SENNOSIDES-DOCUSATE SODIUM 1 EACH TAB PO SCH (08:47)
--- NOTE | 2023-09-10 09:52 | P.PN ---
Progress Note - Text Progress Note Date: 09/10/23 Postoperative day #1 Patient is seen and examined today at bedside. The patient has some pain around the surgical site as expected. Pain is being controlled with medication. He has been obtained to a chair already. He still is fully intact. He does not have any new neurologic complaints. His pain at his back on the incision site as expected. Physical Exam Afebrile with stable vital signs Abdomen is soft nontender. Chest has good excursion deep and space expiration The incision site is clean dry and intact. No erythema there is no purulence. Extremities have not had neurologic change from prior to surgery. Calves and thighs were soft nontender without evidence of DVT. He has good sustained dorsal to plantar flexion and EHL intact. Assessment/Plan Postoperative day #1 status post minimally invasive decompression fusion L2 3 L3 4 L4 5 for his spinal stenosis with severe disc degeneration degenerative scoliosis and lower extremity radiculopathy Patient is progressing as expected from the surgery. The pain at his back as expected and we'll continue pain control with IVs and try to train for her to oral medications. We will continue to increase the patient's mobilization with therapy. He'll get his Nava catheter out today. Hopefully he will be able to urinate sp ontaneously on his own. He does have some history of BPH and is on Flomax which is continuing. If he is not voiding on his own this evening he may have to have his catheter replaced for the night We will continue pain control with oral or IV medications. We'll continue to follow patient closely.
[2023-09-10] MEDS: HYDROcodone/APAP 5-325MG 1 EACH TAB PO PRN ×2 (09:54→14:57)
[2023-09-10 12:10] LABS: BUN/Creat Ratio 12.71 Ratio (12.00-20.00); Blood Urea Nitrogen 8.9 mg/dL (9.0-27.0); Calcium 8.6 mg/dL (8.7-10.3); Carbon Dioxide 24.5 mmol/L (21.6-31.8); Chloride 99 mmol/L (96-109); Glucose 105 mg/dL (70-110); Potassium 4.2 mmol/L (3.5-5.5); Sodium 136 mmol/L (135-145)
[2023-09-10 12:17] LABS: Basophils # (A) 0.04 X 10*3/uL (0.00-0.10); Basophils % (A) 0.3 %; Eosinophils # (A) 0.01 X 10*3/uL (0.04-0.35); Eosinophils % (A) 0.1 %; HCT 36.8 % (39.6-50.0); Lymphocytes # (A) 1.56 X 10*3/uL (0.90-5.00); Lymphocytes % (A) 11.4 %; MCH 30.3 pg (27.0-32.0); MCHC 32.6 g/dL (32.0-37.0); MCV 92.9 FL (80.0-97.0); Mean Platelet Volume 9.9 FL (9.5-12.2); Monocytes % (A) 8.8 %; NRBC Per 100 WBC 0 X 10*3/uL (0.00-0.01); Neutrophils # (A) 10.86 X 10*3/uL (1.80-7.70); Neutrophils % (A) 79.1 %; Platelet Count 194 X 10*3/uL (140-440); RBC 3.96 X 10*6/uL (4.40-5.60); RBC Morphology Normal (Normal); RDW 13.4 % (11.5-14.5); WBC 13.71 X 10*3/uL (4.50-10.00)
[2023-09-10] MEDS: TAMSULOSIN 0.4 MG CAP.ER.24H PO SCH (20:49)
[2023-09-11] MEDS: HYDROmorphone 1 MG/ML 1 ML SYRINGE IVP PRN (00:45)
[2023-09-11 01:10] VITALS: PULSE 107
[2023-09-11] MEDS: HYDROcodone/APAP 5-325MG 1 EACH TAB PO PRN ×2 (03:14→08:50)
[2023-09-11] MEDS: HYDROmorphone 0.5 MG/0.5 ML SYRINGE IVP PRN (05:44)
[2023-09-11 07:36] VITALS: BP 120/66; RESP 16; TEMP 97.8
[2023-09-11] MEDS: CYCLOBENZAPRINE 10 MG TAB PO PRN (08:51)
[2023-09-11] MEDS: SENNOSIDES-DOCUSATE SODIUM 1 EACH TAB PO SCH (08:51)
--- NOTE | 2023-09-11 09:09 | P.DS ---
Providers Date of admission: 09/09/23 13:30 Expected date of discharge: 09/11/23 Attending physician: Cody Solomon Primary care physician: Danette Hernandez - Discharge Diagnosis(es) (1) Status post lumbar spinal fusion Current Visit: Yes Status: Acute (2) Neurogenic claudication due to lumbar spinal stenosis Current Visit: Yes Status: Acute (3) Low back pain Current Visit: Yes Status: Acute (4) Radiculopathy with lower extremity symptoms Current Visit: Yes Status: Acute (5) Lumbar facet arthropathy Current Visit: Yes Status: Acute (6) Lumbar degenerative disc disease Current Visit: Yes Status: Acute (7) Scoliosis Current Visit: Yes Status: Acute (8) Obesity (BMI 30-39.9) Current Visit: No Status: Acute Hospital Course: This is a pleasant 58-year-old male who presented with L2-3, L3-4, and L4-5 spinal stenosis and herniated nucleus pulposus, history of previous laminectomy at L3-4, scoliosis, lumbar facet arthrosis, low back pain with lower extremity radiculopathy and neurogenic claudication who failed outpatient conservative therapy. He was admitted for L2-3, L3-4, and L4-5 minimally invasive posterior lateral decompression and fusion with L3-4 and L4-5 transforaminal lumbar interbody fusion. The patient tolerated the procedure well and did well postoperatively. He has been progressing since surgery. He has been able to increase his ambulation. He has a little bit of pain over his right anterior thigh but states this is improving. He denies any other lower extremity weakness or radiculopathy bilaterally. His pain has been actively controlled with oral and IV medications. He feels his pain could be controlled with oral medications. He would like to be discharged home today. His Nava catheter has remained intact. It was scheduled be discontinued yesterday but was not. We will plan to discontinue his Nava catheter this m orning. We did discuss patient must be able to void independently prior to clearance for discharge home. She does have a history of BPH and is on Flomax. We did discuss he should continue with Flomax Condition on day of discharge stable. Patient will be discharged home. Patient was cleared preoperatively for surgery by . Patient currently denies any nausea, vomiting, fever, or chills. Patient is eating without difficulty. Patient may shower Optifoam dressing intact. Patient may remove Optifoam dressing in 3 days and shower without a dressing at that time. Patient should refrain from driving until at least after their first follow-up appointment in the office. He may utilize walker to aid in ambulation as needed. He has a walker at home. Patient should avoid excessive bending, lifting, and twisting; no lifting greater than 10 pounds. MAPS has been reviewed today, 09/11/2023, with an Overall Overdose Risk Score of 360. An "Opiod Start Talking" Form has been signed and placed in the patient's chart. A prescription has been written for Hydrocodone 5 mg/325 mg, 1 tab, every 4 hours as needed for acute pain, dispense #42. Prescriptions are also sent for cyclobenzaprine 10 mg, 1 tab, 3 times a day, as needed for muscle spasm, dispensed #60 and Senokot-S, 1 tab, twice a day, as needed for constipation, dispensed #60. Prescriptions are sent to the [facility] pharmacy located with in the [facility] per request of the patient. Physical Exam on day of discharge: Patient is awake, alert, and oriented 3 Vital signs stable Good chest excursion with deep inspiration and expiration Abdomen soft nontender No signs or symptoms of DVT; no calf pain Extensor hallucis longus, plantarflexion, and dorsiflexion positive sustained bilateral lower extremities Patient is able to perform good active range of motion of his bilateral lower extremities independently without difficulty Lumbar dressing over the left lower lumbar spine does have some dried blood without active drainage Incision are dry and intact; no erythema, purulence, or signs of infection Optifoam dressing intact Nava catheter intact Procedures: L2-3, L3-4, and L4-5 minimally invasive posterior lateral decompression and fusion with L3-4 and L4-5 transforaminal lumbar interbody fusion Patient Condition at Discharge: Stable Plan - Discharge Summary Discharge Rx Participant: Yes New Discharge Prescriptions: New Cyclobenzaprine [Flexeril] 10 mg PO TID PRN #60 tab PRN Reason: Muscle Spasm HYDROcodone/APAP 5-325MG [[place] 5] 1 each PO Q4HR PRN #42 tab PRN Reason: Pain Sennosides-Docusate Sodium [Senokot-S] 1 tab PO BID PRN #60 tablet PRN Reason: Constipation No Action Tamsulosin HCl [Flomax] 0.4 mg PO HS Discharge Medication List Tamsulosin HCl [Flomax] 0.4 mg PO HS 09/09/23 [History] Cyclobenzaprine [Flexeril] 10 mg PO TID PRN #60 tab 09/11/23 [Rx] HYDROcodone/APAP 5-325MG [[place] 5] 1 each PO Q4HR PRN #42 tab 09/11/23 [Rx] Sennosides-Docusate Sodium [Senokot-S] 1 tab PO BID PRN #60 tablet 09/11/23 [Rx] Follow up Appointment(s)/Referral(s): Julius Pfeiffer, ANDRE [PHYSICIAN CHIEF CREW SCHEDULER] - 2 Weeks (Patient may follow-up with Julius Pfeiffer PA-C or Dr. Darren Solomon at [facility] in 2-3 weeks following discharge. ) Activity/Diet/Wound Care/Special Instructions: 1. Patient may shower with Optifoam dressing intact. 2. Patient may remove Optifoam dressing in 3 days and shower without a dressing at that time. 3. Patient should refrain from driving until at least after their first follow- up appointment in the office. 4. Patient should avoid excessive bending, twisting, lifting; avoid overhead lifting; no lifting greater than 10 pounds 5. Take medications as prescribed 6. Patient may utilize walker to aid in ambulation as needed 7. Patient should avoid anti-inflammatory medications over the next 6 weeks postoperatively 8. Do not soak in tub Discharge Disposition: HOME SELF-CARE
== END 2023-09-11 13:44 | disposition home or self-care (01) ==
LOC: OR 05:38 → 4SSUR 13:30
PROVIDERS: ADMIT Orthopaedic Surgery Orthopaedic Surgery of the Spine; ATTEND Orthopaedic Surgery Orthopaedic Surgery of the Spine
DX: M48.062 Spinal stenosis, lumbar region with neurogenic claudication (principal); M51.16 Intervertebral disc disorders with radiculopathy, lumbar region; M47.819 Spondylosis without myelopathy or radiculopathy, site unspecified; M47.26 Other spondylosis with radiculopathy, lumbar region; M41.80 Other forms of scoliosis, site unspecified; E66.9 Obesity, unspecified; Z68.30 Body mass index [BMI] 30.0-30.9, adult; N40.0 Benign prostatic hyperplasia without lower urinary tract symptoms; K21.9 Gastro-esophageal reflux disease without esophagitis; Z79.899 Other long term (current) drug therapy; H91.90 Unspecified hearing loss, unspecified ear; Z96.642 Presence of left artificial hip joint; Z98.84 Bariatric surgery status; Z87.891 Personal history of nicotine dependence; Z83.3 Family history of diabetes mellitus; Z82.49 Family history of ischemic heart disease and other diseases of the circulatory system; Z84.89 Family history of other specified conditions
CPT/HCPCS: 22630; 22632; 22614 ×3; 20939; 20930; 94760; 97116; 97161; 86891; 80048; 85025; 72100; G0378 ×2; P9022; C1713 ×2; C1762; J2250; J0330; J2710; J0690 ×2; J2405 ×2; J2001; J3010; J1170 ×6; J2704; J2371; J0665

== ENCOUNTER → 2024-10-18 | Outpatient (CLI) | payer MEDICARE, OTHER ==
--- NOTE | 2024-10-18 08:53 | MR ---
EXAMINATION TYPE: MR Prostate wo/w con DATE OF EXAM: 10/18/2024 COMPARISON: None. INDICATION: Hx of enlarged prostate, elevated PSA PSA: 8.43 ng/ml in April 2024 Recent Biopsy and Date: None Pathology Report (If Applicable): n/a TECHNIQUE: Examination was performed using a 3T MRI without an endorectal coil. Multiparametric imaging was perf ormed with T2 mutliplanar sequences, axial diffusion weighted imaging and dynamic contrast enhanced i maging, utilizing 9 mL intravenous Gadobutrol gadolinium contrast. FINDINGS: PROSTATE VOLUME: 7.1 cm SI x 5.1 cm AP x 6.1 cm LR Vol= 115.7 cc PSA DENSITY: 0.07 ng/ml/cc Significantly enlarged prostate consistent with BPH is present. Exam is suboptimal with marked distor tion on DWI and ADC images due to susceptibility artifact from left hip arthroplasty. Essentially non diagnostic evaluation of the left prostate. There is marked transitional zone hypertrophy with bilate ral nodules. No suspicious T2 hypointense areas. A right-sided ossification in the base is noted. Highest PI-Rads 2. Urinary bladder shows no suspicious wall thickening or trabeculation. There are moderate-sized fat-co ntaining bilateral inguinal hernias noted. IMPRESSION: Significantly enlarged prostate consistent with BPH. Suboptimal study particularly the DW I/ADC images and particularly the left aspect of prostate gland A focus of clinically significant cancer is not identified. Highest Assessment Category: 2 MRI Stage: T0 N0 M0 based on review of pelvic images. False negative rates for MRI range from 5-20% depending on risk profile. Assessment Categories: 1 ? Very low (clinically significant cancer is highly unlikely to be present) 2 ? Low (clinically significant cancer is unlikely to be present) 3 ? Intermediate (the presence of clinically significant cancer is equivocal) 4 ? High (clinically significant cancer is likely to be present) 5 ? Very high (clinically significant cancer is highly likely to be present) [facility], , 10/18/2024 8:51 AM
== END | disposition home or self-care (01) ==
LOC: RADMRIMAIN 06:02
PROVIDERS: ATTEND Urology
DX: R97.20 Elevated prostate specific antigen [PSA] (principal); N40.0 Benign prostatic hyperplasia without lower urinary tract symptoms; K40.20 Bilateral inguinal hernia, without obstruction or gangrene, not specified as recurrent; Z96.642 Presence of left artificial hip joint
CPT/HCPCS: 72197; A9585